=== PATIENT | male | born 1990 | race Two or more races ===

== ENCOUNTER 2024-04-04 04:01 | Inpatient (IN) | payer MEDICAID, SELFPAY ==
[2024-04-04] VITALS (10 sets, daily range): BP systolic 134–162; BP diastolic 75–88; PULSE 77–122; RESP 18–20; TEMP 36.6–39.3; O2SAT 94–100; BMI 50.1
--- NOTE | 2024-04-04 04:15 | XR_ITS ---
Examination: CT abdomen with intravenous contrast CT pelvis with intravenous contrast 2-D coronal reconstructions 2-D sagittal reconstructions Date and time of exam:April 04, 2024 0544 hours INDICATIONS: Redness swelling and pain in the buttock region this week, diagnosis abscess. Renal abscess. CTDI: vol (mGy) 21.21 DLP: (mGycm) 1747 Technique: Multiple axial sections of the abdomen and pelvis have been obtained. 64 slice high-resolution scanner used. 3 mm axial sections have been obtained, post intravenous injection 60 cc [id number] 2-D sagittal, coronal reconstructions obtained. Low dose protocols were performed. One or more of the following dose reduction techniques were used; automated exposure control, adjustment of the mA and/or KV according to patient size, use of iterative reconstruction technique. 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
--- NOTE | 2024-04-04 04:17 | EDRME_ITS ---
Rapid Medical Screening Exam [facility] Arrival date/time: 04/04/24 04:01 34-year-old male past medical history of hypertension presents emergency department complaining of abscess to right buttocks that is been ongoing for 1 week. Patient reports seeing primary care provider was discharged on Bactrim but reports symptoms have worsened. Patient reports has taken 3 days worth of Bactrim. Chief Complaint: Skin/Abscess/Foreign Body Vital signs: Vital Signs Temperature 99.6 F 04/04/24 04:11 Pulse Rate 122 H 04/04/24 04:11 Respiratory Rate 18 04/04/24 04:11 Blood Pressure 138/82 H 04/04/24 04:11 Pulse Oximetry (%) 98 04/04/24 04:11 Oxygen Delivery Method Room Air 04/04/24 04:11 Vital signs reviewed by provider: Yes
[2024-04-04 05:05] LABS: Lactate (Lactic Acid) 1.3 mMol/L (0.4-2.0)
[2024-04-04 05:07] LABS: Basophils # (Auto) 0.1 Thou/mm3 (0.0-0.2); Basophils % (Auto) 0 % (0-2.5); Eosinophils % (Auto) 0 % (0-10); Hematocrit 44.4 % (41.0-53.0); Hemoglobin 15.1 g/dL (13.5-16.0); Immature Granulocytes % (Auto) 2 % (0-0); Immature Granulocytes Auto 0.47 Thou/mm3 (0.00-0.00); Lymphocytes # (Auto) 2.4 Thou/mm3 (1.0-4.8); Lymphocytes % (Auto) 8 % (10-50); Mean Corpuscular Hemoglobin 30.3 pg (25.0-35.0); Mean Corpuscular Volume 89 fL (80-100); Monocytes # (Auto) 3.1 Thou/mm3 (0.0-0.8); Monocytes % (Auto) 10 % (0-12); Neutrophils % (Auto) 80 % (37-80); Nucleated Red Blood Cell % 0 /100 WBC (0); Platelet Count 318 Thou/mm3 (140-440); RDW Standard Deviation 42.2 fL (35.1-43.9); Red Blood Count 4.98 Miln/mm3 (4.50-5.90)
[2024-04-04 05:09] LABS: White Blood Count 30.1 Thou/mm3 (3.8-10.6)
--- NOTE | 2024-04-04 05:13 | PC.NURSE ---
Initial contact with pt.
[2024-04-04] MEDS: HYDROcodone/APAP 5/325 TABLET 1 TAB PO (05:22)
[2024-04-04 05:23] LABS: Glucose Estimated Average 111 mg/dL (80-131); Hemoglobin A1C 5.5 % Hgb (4.8-6.0)
[2024-04-04 05:33] LABS: Alanine Aminotransferase 21 U/L (10-49); Albumin, Serum 4.2 gm/dL (3.5-5.0); Albumin/Globulin Ratio 1.1 (1.2-2.2); Alkaline Phosphatase 60 U/L (46-116); Anion Gap 9 (7-16); Aspartate Amino Transferase 22 U/L (0-34); BUN/Creatinine Ratio 9 Ratio (12-20); Blood Urea Nitrogen 11 mg/dL (9-23); Calcium 9.1 mg/dL (8.3-10.6); Calcium (Corrected) 9.1 mg/dL (8.5-10.1); Carbon Dioxide 23.8 mMol/L (20.0-31.0); Chloride 104 mMol/L (98-107); Creatinine (Component) 1.2 mg/dL (0.6-1.3); Estimated Creatinine Clearance 140.7 mL/min (>60); Globulin 3.9 gm/dL (2.3-3.5); Glucose 116 mg/dL (74-106); Osmolality,Calculated 274 (275-295); Potassium 4.2 mMol/L (3.4-5.1); Procalcitonin 0.25 ng/ml (0.0-0.49); Sodium 137 mMol/L (136-145); Total Protein 8.1 gm/dL (5.7-8.2); eGFR > 60 See Note
--- NOTE | 2024-04-04 06:17 | PRELIM_ITS ---
CT scan of the abdomen and pelvis with intravenous contrast (axial sections with sagittal and coronal reformats) April 04, 2024 0544 hours Clinical History: Rule out ishiorectal or perianal abscess Findings: The lung bases are clear. Fatty infiltration of the liver is noted.The gallbladder, pancreas, spleen, kidneys and adrenals are unremarkable. No evidence of bowel obstruction. Fluid filled small bowel loops are seen. There are multiple colonic diverticula without evidence of diverticulitis.The appendix is within normal limits. There is no mesenteric or retroperitoneal adenopathy. The urinary bladder is unremarkable. There is no free fluid or free air. There is severe ischiorectal and perineal fat stranding with multiple gas loculi. The osseous structures are unremarkable. Impression: Findings suggestive of Serene gangrene involving perineum andischiorectal fossa on the left. Other findings as described above. Report Electronically Signed By: Kaleb Zuleta 04/04/2024 6:15:38 AM [EST]
--- NOTE | 2024-04-04 06:40 | PC.LAC ---
Pt transfered to #[id number], via w/c. Pt carried by mom on w/c without incident.
--- NOTE | 2024-04-04 06:57 | PC.NURSE ---
Dr. Mcgregor in room seeing pt.
--- NOTE | 2024-04-04 06:57 | PD.EDSKIN ---
ED Skin Abcess FB-RME/HPI General Chief complaint: Skin/Abscess/Foreign Body Stated complaint: ABSCESS ON BUTTOCK Time Seen by Provider: 04/04/24 06:15 Arrival date/time: 04/04/24 04:01 RME / HPI RME / HPI narrative: 04/04/24 04:01 34-year-old male past medical history of hypertension presents emergency department complaining of abscess to right buttocks that is been ongoing for 1 week. Patient reports seeing primary care provider was discharged on Bactrim but reports symptoms have worsened. Patient reports has taken 3 days worth of Bactrim. DR. LYNCH MAIN ED EVALUATION 34 year old male with history of hypertension who presents to the emergency department with complaints of perineal pain, redness, and swelling. He was diagnosed with a perineal abscess by his PCP two days ago and was started on a course of Bactrim. However, he reports no improvement in symptoms since starting the antibiotic and progressively worsening. The pain has been persistent and is localized to the perineal region. He denies any pain or discomfort involving the scrotum or penis. Denies any drainage from the area. Denies fever, chills, trauma or recent surgical procedures in the perineal area. Denies any difficulty urinating. No history of similar abscesses or infections in the past. Related Data Previous Rx's ?Medication ?Instructions ?Recorded ibuprofen 800 mg tablet 800 mg PO TID PRN pain #20 tabs 08/18/18 Allergies Allergy/AdvReac Type Severity Reaction Status Date / Time No Known Allergies Allergy Verified 04/04/24 04:04 Review of Systems Review of Systems Narrative Review of Systems: Gen: No fever, no chills, no weight loss EYES: No discharge, no visual changes, no pain HEENT: No ear pain, no congestion, no sore throat PULM: no shortness of breath, no cough, no congestion CV: No chest pain, no dyspnea on exertion, no palpitations, no chest tightness GI: No nausea, no vomiting, no diarrhea, no pain, no constipation : No frequency, no urgency,? no dysuria Musc/skel: No joint pain, no back pain Skin: +redness/swelling/pain to base of left buttock/perianal area. No rash, no lesions Psyc: No hallucinations, no depression Heme/Lymph: No easy bleeding or bruising tendencies Neuro: No weakness, no headache Past Medical History Past Medical History NEUROLOGIC: Negative Neurological Disorders CARDIAC: Positive Myocardial Infarction and Coronary Artery Disease GASTROINTESTINAL: Negative Gastrointestinal Disorders GENITOURINARY: Negative Genitourinary Disorders or Renal Disease MUSCULOSKELETAL: Negative Musculoskeletal Disorders ENDOCRINE: Negative Endocrine Disorders Family History FAMILY HISTORY: Positive Family Cardiac Disorders Social History SMOKING STATUS: Current some day smoker SUBSTANCE USE: does not use ED Exam Narrative Physical exam: GENERAL APPEARANCE: AxOx4, no obvious distress, nontoxic appearing HEENT: NC, AT. MMM. EOMI, clear conjunctiva, oropharynx clear. NECK: Supple without lymphadenopathy. No stiffness or restricted ROM. HEART: Normal rate and regular rhythm, normal S1/S1, no m/r/g LUNGS: CTAB, moving air well. No crackles or wheezes are heard. ABDOMEN: Soft, nontender, nondistended with good bowel sounds heard. : Redness that tracks up the perineum, to the left glutteus at the base there is an area measuring 10cm x 10cm of fluctuance with induration that extends up to perineum, does not reach the anterior perineum. No scrotal involvement, no penile involvement, no necrosis, blistering, or hemorrhagic bulla BACK: No midline C/T/L spine pain or deformity, No CVAT, no obvious deformity. EXTREMITIES: Without cyanosis, clubbing or edema. MUSCULOSKELETAL: FROM of all major joints, no chest tenderness NEUROLOGICAL: Grossly nonfocal. Alert and oriented, moving all 4 extremities. CN not formally tested but appear grossly intact. Skin: Warm and dry without any rash. Course Quality Measures none Orders Category Date Time Status Admit to Inpatient Status Routine Admission 04/04/24 12:02 Active Admit to Inpatient Status Routine Admission 04/04/24 12:03 Active Patient Condition Routine Admission 04/04/24 12:03 Ordered Activity as Tolerated Routine Care 04/04/24 12:[address] Screening NOW Care 04/04/24 04:15 Active NPO NOW Care 04/04/24 06:59 Active Notify provider NEEDED Care 04/04/24 12:03 Active Vital Signs, Non-Routine Q4H Care 04/04/24 12:15 Ordered Vital Signs, Non-Routine Q4H Care 04/04/24 16:15 Ordered Vital Signs, Non-Routine Q4H Care 04/04/24 20:15 Ordered Consult to General Surgery Stat Cons 04/04/24 07:32 Ordered Diet NPO (NOW) Diet 04/04/24 06:[address] abdomen pelvis w con Stat Exams 04/04/24 04:15 Completed US testicular Stat Exams 04/04/24 12:07 Ordered A1C [Glycohemoglobin w (eAG)] Stat Lab 04/04/24 04:55 Completed Blood Culture (Lab) Stat Lab 04/04/24 04:55 Received CBC AM DRAW Lab 04/05/24 05:00 Ordered CBC AM DRAW Lab 04/06/24 05:00 Ordered CBC AM DRAW Lab 04/07/24 05:00 Ordered CBC Stat Lab 04/04/24 04:55 Completed CMP [Comprehensive Metabolic Panel] Stat Lab 04/04/24 04:55 Completed Comprehensive Metabolic Panel AM DRAW Lab 04/05/24 05:00 Ordered Comprehensive Metabolic Panel AM DRAW Lab 04/06/24 05:00 Ordered Comprehensive Metabolic Panel AM DRAW Lab 04/07/24 05:00 Ordered Lactic Acid [Lactate (Lactic Acid)] Stat Lab 04/04/24 04:55 Completed Procalcitonin Stat Lab 04/04/24 04:55 Completed Urinalysis, C/S if Indicated Stat Lab 04/04/24 04:17 Ordered Acetaminophen Tab [Tylenol Tab] Med 04/04/24 12:03 Active 650 mg PO Q6H PRN Enoxaparin [Lovenox] Med 04/05/24 09:00 Discontinued 40 mg SC QDAY Enoxaparin [Lovenox] Med 04/04/24 21:00 Active 60 mg SC BID HYDROcodone*/APAP 5/325 [[place] 5/325] Med 04/04/24 04:15 Discontinued 1 tab PO X1 ONE Heparin Inj Med 04/04/24 21:00 Discontinued 5,000 unit SC BID Ibuprofen Tab [Motrin Tab] Med 04/04/24 12:03 Active 600 mg PO Q6H PRN Morphine Inj Med 04/04/24 12:03 Active 2 mg IVP Q2H PRN Ondansetron Inj [Zofran Inj] Med 04/04/24 12:03 Active 4 mg IV Q6H PRN Piper/Tazo 3.375 gm [Zosyn] Med 04/04/24 13:00 Active 3.375 gm in 50 ml IV Q8H Piper/Tazo 3.375 gm [Zosyn] 50 ml Med 04/04/24 06:59 Discontinued IV X1 Senna [Senokot] Med 04/04/24 12:03 Active 2 tab PO BID PRN Sodium Chloride 0.9% 1000 ml [Ns] 1,000 ml Med 04/04/24 06:58 Discontinued IV 999 mls/hr Vancomycin Inj 1,000 mg Med 04/04/24 06:59 Discontinued Sodium Chloride 0.9% 250 ml [Ns] 250 ml IV X1 Vancomycin Inj 1,500 mg Med 04/05/24 00:00 Active Sodium Chloride 0.9% 500 ml [Ns] 500 ml IV Q12H Vancomycin Pharmacy to Dose Med 04/05/24 09:00 Active 1 each IV QDAY Vancomycin/Ns 500 mg Ivpb 100 ml Med 04/04/24 11:00 Discontinued IV NOW oxyCODONE/APAP 5/325 [Percocet 5/325] Med 04/04/24 12:03 Active 1 tab PO Q6H PRN Code Status Routine Oth 04/04/24 12:03 Ordered Vital Signs Vital signs: Vital Signs Temperature 99.6 F 04/04/24 04:11 Pulse Rate 122 H 04/04/24 04:11 Respiratory Rate 18 04/04/24 04:11 Blood Pressure 138/82 H 04/04/24 04:11 Pulse Oximetry (%) 98 04/04/24 04:11 Oxygen Delivery Method Room Air 04/04/24 04:11 Pulse ox is 98% on room air which is adequate. Skin / Abscess / Foreign Body MDM Narrative MDM Narrative:: Mr. Robson Gregg presents to the emergency department with gluteal cellulitis with some extension into the perineum. There is potentially fluctuance at the gluteal and of the infection. There is no signs of necrosing skin findings or hemorrhagic bulla on exam. He has been ambulatory here in the emergency department without issue or antalgic gait. Patient is an on Bactrim for 2 days via his outpatient provider. Patient had laboratory testing sent via the E process which significant for a white blood cell count of 30,000, normal lactic acid, normal blood sugar, normal hemoglobin A1c. CT scan of the abdomen pelvis were done which shows gas-forming infection of the gluteus including the perineum that could be suggestive of Serene's gangrene. This is quite contrary to the exam, therefore surgery was consulted where we did access the patient together at bedside. He agrees does not appear to be an overt Serene's or a necrotizing infection, recommends IV antibiotics with the hospitalist service, and he will take to the operating room for debridement. Jamee Carty, am scribing for and in the presence of Dr. Lynch. Patient data External records reviewed:: [facility] previous records (I reviewed ED visit on 08/18/2018) Clinical information provided by:: patient Social determinants that could affect healthcare access:: none Patient has the following chronic illnesses:: HTN How is presenting disease/condition affected by chronic disease/condition?: uneffected by Evaluation data The following diagnostics were reviewed and interpreted by me:: lab results and radiology exam(s) Lab and/or radiology exams considered but not ordered:: None Interpretation Summary: Ordering Physician: Abigail Rey (SLEEPING CAR SERVICE ATTENDANT),Hernandez AVALOS Date of Service: 04/04/24 Procedure(s): CT abdomen pelvis w con Accession Number(s): [id number] cc: Brannon Gregg MD; Rowdy Zepeda MD; Abigail Rey (SLEEPING CAR SERVICE ATTENDANT),Hernandez AVALOS~ Examination: CT abdomen with intravenous contrast CT pelvis with intravenous contrast 2-D coronal reconstructions 2-D sagittal reconstructions Date and time of exam:April 04, 2024 0544 hours INDICATIONS: Redness swelling and pain in the buttock region this week, diagnosis abscess. Renal abscess. CTDI: vol (mGy) 21.21 DLP: (mGycm) 1747 Technique: Multiple axial sections of the abdomen and pelvis have been obtained. 64 slice high-resolution scanner used. 3 mm axial sections have been obtained, post intravenous injection 60 cc [id number] 2-D sagittal, coronal reconstructions obtained. Low dose protocols were performed. One or more of the following dose reduction techniques were used; automated exposure control, adjustment of the mA and/or KV according to patient size, use of iterative reconstruction technique. 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 Dictated By: Rowdy Zepeda MD Signed By: <Electronically signed by Rowdy Zepeda MD in OV> 04/04/24 0704 Medications / Prescriptions Medications or Prescriptions considered but not ordered:: None Medication administrations:: Medication Administration History Acetaminophen (Acetaminophen 325 Mg Tablet) 650 mg PO Q6H PRN PRN Reason: Fever >101.5 Stop: 05/04/24 12:02 Enoxaparin Sodium (Enoxaparin Sod Inj 60 Mg/0.6 Ml Syringe) 60 mg SC BID [facility]; Protocol Stop: 04/18/24 20:59 Piperacillin/Tazobactam/Dextrose (Zosyn) 3.375 gm in 50 mls @ 12.5 mls/hr IV Q8H [facility] Stop: 04/11/24 12:59 Vancomycin HCl 1,500 mg/ (Sodium Chloride) 500 mls @ 333.333 mls/hr IV Q12H [facility] Stop: 04/12/24 00:00 Ibuprofen (Ibuprofen Tab 600 Mg Tablet) 600 mg PO Q6H PRN PRN Reason: PAIN SCALE 1-3 (mild Stop: 05/04/24 12:02 Morphine Sulfate (Morphine Sulf Inj 10 Mg/Ml Vial) 2 mg IVP Q2H PRN PRN Reason: PAIN SCALE 7-10 (Severe Stop: 04/09/24 12:02 Ondansetron HCl (Ondansetron Inj 2 Mg/Ml Inj 2 Ml) 4 mg IV Q6H PRN; Protocol PRN Reason: NAUSEA OR VOMITING Stop: 05/04/24 12:02 Oxycodone/Acetaminophen (Oxycodone/Apap 5/325 Tablet) 1 tab PO Q6H PRN PRN Reason: PAIN SCALE 4-6 (Moderate Stop: 04/09/24 12:02 Pharmacy Consult (Vancomycin Pharmacy To Dose 1 Each Each) 1 each IV QDAY [facility] Stop: 05/05/24 08:59 Sennosides (Senna Tablet) 2 tab PO BID PRN; Protocol PRN Reason: CONSTIPATION Stop: 05/04/24 12:02 Discontinued Medications Hydrocodone Bitart/Acetaminophen (Hydrocodone/Apap 5/325 Tablet) 1 tab PO X1 ONE Stop: 04/04/24 04:16 Last Admin: 04/04/24 05:22 Dose: 1 tab Documented By: RAHUL Enoxaparin Sodium (Enoxaparin Sod Inj 40 Mg/0.4 Ml Syringe) 40 mg SC QDAY [facility] Stop: 04/19/24 08:59 Heparin Sodium (Porcine) (Heparin Sod Inj 5000 Unit/Ml Vial) 5,000 unit SC BID [facility] Stop: 04/18/24 20:59 Sodium Chloride (Ns) 1,000 mls @ 999 mls/hr IV .Q1H1M ONE Stop: 04/04/24 07:58 Last Infusion: 04/04/24 08:45 Dose: Infused Documented By: Admin: 04/04/24 07:13 Dose: 999 mls/hr Documented By: RAHUL Vancomycin HCl 1,000 mg/ (Sodium Chloride) 250 mls @ 150 mls/hr IV X1 ONE Stop: 04/04/24 08:38 Last Infusion: 04/04/24 12:11 Dose: Infused Documented By: Admin: 04/04/24 09:17 Dose: 150 mls/hr Documented By: JEIMY Piperacillin/Tazobactam/Dextrose (Zosyn) 50 mls @ 100 mls/hr IV X1 ONE Stop: 04/04/24 07:28 Last Infusion: 04/04/24 10:14 Dose: Infused Documented By: Admin: 04/04/24 09:00 Dose: 100 mls/hr Documented By: JEIMY Vancomycin/Sodium Chloride (Vancomycin/Ns 500 Mg Ivpb) 100 mls @ 100 mls/hr IV NOW ONE Stop: 04/04/24 11:59 See above Consultations Consultation(s) initiated? (list below): Yes Consultation #1 (Physician, Specialty, Details): I spoke with surgeon Dr. Miranda. Discussed patients PMHx, HPI, ED course, exam findings, labs, and radiology results. Will come evaluate the patient in the ED. Time: 07:10 Consultation #2 (Physician, Specialty, Details): I spoke with resident Dr. Peña working with Dr. Baumann. Discussed patients PMHx, HPI, ED course, exam findings, labs, and radiology results. The hospitalist agree to accept the patient for admission. Diagnosis Skin/Abscess Differential Diagnosis: abscess of skin or subcutaneous tissue, cellulitis, contact dermatitis and other (abscess ) Most likely diagnosis given after review of the tests above:: Cellulitis Admission Indicated Admission indicated?: indicated Admission Request Was there a request for admission?: Yes Admission Attestation Admission request attestation: Discussed case with [] from Hospitalist service regarding admission. Discussed patients ED course, exam findings, labs, and radiology results. The Hospitalist [agrees,declines] to accept the patient for admission. Disposition Plan Disposition Plan: Admit Discharge Plan Plan Patient Disposition: Admit Acute Care w/in Hospital Prescriptions/Referrals Prescriptions/Med Rec: No Action ibuprofen 800 mg tablet 800 mg PO TID PRN (Reason: pain) Qty: 20 0RF Referrals: Brannon Gregg MD [Primary Care Provider] - In 1 week Problem List Clinical Impression: Cellulitis Patient/Caregiver Discharge Instructions Print Language: Yoruba Stand Alone Forms: [facility] Award Info., Patient Portal Info Letter
[2024-04-04] MEDS: SODIUM CHLORIDE 0.9% 1000 ML 1,000 ML 999 ML IV (07:13)
[2024-04-04] MEDS: PIPER/TAZO 3.375 GM 50 ML IV (09:00)
[2024-04-04] MEDS: Vancomycin Inj 1,000 MG in SODIUM CHLORIDE 0.9% 250 ML 250 ML 150 MG IV (09:17)
--- NOTE | 2024-04-04 10:17 | ESHP_ITS ---
<Statement entered by Jaleesa Peña MD - 04/04/24 16:43> Patient is a 34 year old male with no PMH who presents to the ER for worsening left buttock pain. Pain started 5 days ago. He followed up with outpatient clinic and tried 3 days of bactrim without significant improvement, so came to the ER. Denies history of diabetes, or buttock wounds in the past. On exam, noted firm induration along right buttock extending to mid-perineum, pain to palpation, non-malodorous. CT imaging showed extensive cellulitis possible guy, however patient was assessed by the ER physician and general surgeon with low suspicion for Guy gangrene at this time. Labs significant for leukocytosis, otherwise patient does not appear septic. Will give broad spectrum IV antibiotics with possible plans for general surgery to take patient to ER in 1-2 days for possible I&D. Will follow up cultures and get ultrasound of the scrotum in the meantime. Jaleesa Peña MD PGY-3 Documentation for date of: 04/04/24 HPI History of Present Illness Chief complaint: Cellulitis of the buttock History of present illness: Patient is a 34-year-old male with history of hypertension and morbid obesity, presenting with a complaint of left buttock swelling, erythema and tenderness for the last 5 days. Was diagnosed with cellulitis 3 days ago at outpatient clinic and was given a course of Bactrim. Patient took 3 days of the medication and did not note improvement so he presented to the ED today. Swelling started at the left butt cheek and worked its way towards his anus and anterior around the perineum. Denies any drainage. No fevers, chills. He did have an episode of diarrhea and vomiting which is now resolved. In the ED vitals within normal limits. Labs with a leukocytosis of 30. Negative lactic acid 1.3. Blood cultures x 2 drawn. Negative Pro-Celestine 0.25. CT of the abdomen and pelvis shows cellulitis involving the left buttock and perineum. Patient was started on Vanco and Zosyn, received 1 L bolus and was given hydrocodone for pain. Medical history: Obesity, hypertension Allergies: None Medications: Unknown blood pressure medication Surgeries: None Social: Denies alcohol use, former smoker 5-pack-year history Patient was evaluated and managed by my attending Dr. Baumann, Luan Adame DO, PGY1 Review of Systems Constitutional Constitutional: Reports as per HPI Exam Vital Signs Temp Pulse Resp BP Pulse Ox O2 Del Method 98.4 F 80 18 134/75 H 95 Room Air 04/04/24 09:00 04/04/24 09:00 04/04/24 09:00 04/04/24 09:00 04/04/24 09:00 04/04/24 09:00 Narrative Exam Constitutional: Obese, no acute distress Head: Normocephalic/Atraumatic Eyes:no conjunctival injection , symmetrical lids. ENMT: Moist Mucous Membranes CVS: Regular rate and rhythm RESP: no increased work of breathing, on room air : Left buttock is indurated, erythematous, warm and tender to palpation. There is a 2 x 2 cm area of focal induration on the posterior aspect of the left buttock. Erythema and induration spreads anteriorly to the perineum at the base of the scrotum. Patient is able to move around in bed comfortably, and move his scrotum without difficulty or pain. MSK: Full range of motion Skin: As per above Neuro: Alert and oriented Psych: Appropriate mood and affect. Results: Labs 04/04/24 04:55 04/04/24 04:55 Labs: Short CBC 04/04/24 Range/Units 04:55 WBC 30.1 H (3.8-10.6) Thou/mm3 Hgb 15.1 (13.5-16.0) g/dL Hct 44.4 (41.0-53.0) % Plt Count 318 (140-440) Thou/mm3 BMP 04/04/24 04:55 Sodium 137 Potassium 4.2 Chloride 104 Carbon Dioxide 23.8 BUN 11 Creatinine 1.2 Glucose 116 H Calcium 9.1 Liver Function 04/04/24 Range/Units 04:55 Total Bilirubin 1.0 (0.3-1.2) mg/dL AST 22 (0-34) U/L ALT 21 (10-49) U/L Alkaline Phosphatase 60 (46-116) U/L Albumin 4.2 (3.5-5.0) gm/dL Quality Measures Quality Measures none Medications Home Medications and Allergies Allergies Allergy/AdvReac Type Severity Reaction Status Date / Time No Known Allergies Allergy Verified 04/04/24 04:04 Visit Medications Piperacillin/Tazobactam/Dextrose (Zosyn) 3.375 gm in 50 mls @ 100 mls/hr IV Q6HR [facility] Stop: 04/11/24 14:59 Pharmacy Consult (Vancomycin Pharmacy To Dose 1 Each Each) 1 each IV QDAY [facility] Stop: 05/05/24 08:59 Discontinued Medications Hydrocodone Bitart/Acetaminophen (Hydrocodone/Apap 5/325 Tablet) 1 tab PO X1 ONE Stop: 04/04/24 04:16 Last Admin: 04/04/24 05:22 Dose: 1 tab Sodium Chloride (Ns) 1,000 mls @ 999 mls/hr IV .Q1H1M ONE Stop: 04/04/24 07:58 Last Infusion: 04/04/24 08:45 Dose: Infused Vancomycin HCl 1,000 mg/ (Sodium Chloride) 250 mls @ 150 mls/hr IV X1 ONE Stop: 04/04/24 08:38 Last Admin: 04/04/24 09:17 Dose: 150 mls/hr Piperacillin/Tazobactam/Dextrose (Zosyn) 50 mls @ 100 mls/hr IV X1 ONE Stop: 04/04/24 07:28 Last Infusion: 04/04/24 10:14 Dose: Infused Assessment & Plan Plan Patient is a 34-year-old male with history of hypertension and morbid obesity, presenting with a complaint of left buttock swelling, erythema and tenderness for the last 5 days. Admitted for further treatment of cellulitis. Sepsis Cellulitis Leukocytosis In the ED vitals within normal limits. Labs with a leukocytosis of 30. Negative lactic acid 1.3. Blood cultures x 2 drawn. Negative Pro-Celestine 0.25. CT of the abdomen and pelvis shows Guy's involving the left buttock and perineum. Testicular ultrasound unremarkable. On exam: Left buttock is indurated, erythematous, warm and tender to palpation. There is a 2 x 2 cm area of focal induration on the posterior aspect of the left buttock. Erythema and induration spreads anteriorly to the perineum at the base of the scrotum. Patient is able to move around in bed comfortably, and move his scrotum without difficulty or pain. Dr. Miranda, general surgery consulted and he does not think that this is Guy's gangrene. There is no obvious signs of ischemia, no crepitus on exam, appears erythematous and indurated which is more consistent with cellulitis. Reevaluated patient at [address] Baumann and wound care nurse Melissa. Patient spiking fever of 101.5. He feels as though these swelling is extending forward from his perineum into his base of scrotum. Images were taken by Melissa and we marked the sites of erythema. Called Dr. Miranda, surgical attending who has been consulted. He noted that surgery is not needed at this time, that fevers are expected with cellulitis, needs time (1 to 2 days) with IV antibiotics before he can take patient to the OR. Plan: ?Surgery consulted, OR tomorrow or the next day ?Patient on vancomycin, Zosyn and clindamycin (/?present) ?Blood cultures pending ?Pain meds as needed ?Will continue monitor vitals ?Consulted wound care Hypertension Patient does not know what his home medication is. ?Initiated losartan 25 mg daily Prediabetes A1c 5.5 ?Diabetic diet Obesity Patient was evaluated and managed by my attending Dr. Baumann, Luan Adame DO, PGY1 Attending Provider Attestation/Addendum I, Janie Baumann DO, attest that I was physically present for the munoz portions of the service and evaluated the patient with the resident and I reviewed and discussed the case with the resident and agree with the resident's findings and plans of care as documented above Patient is a 34 year old male with no significant past medical history who presented to the ED due to worsening pain in his left buttock that began 5 days ago. Patient has been taking bactrim for the past 3 days without any resolution of his pain or infection. Patient denied any prior history of abscesses. He denies taking any other medications otherwise. A1c is noted to be 5.5. Patient reports pain, but denies any fevers or chills. On exam, patient is noted to have induration and pain to palpation of his buttock. CT abdomen and pelvis was done in ED showing extensive soft tissue infection, concerning for guy. However, on exam, there is no edema, tenderness or erythema involving the scrotum. Induration is noted around the perineum. Case was discussed with surgeon who plans for debridement in 1-2 days and has low suspicion for guy. Will admit to med/tele and cover with broad spectrum antibiotics. Will cover for vancomycin, zosyn and clindamycin. Continue with IV fluid hydration and f/u with cultures
--- NOTE | 2024-04-04 12:07 | XR_ITS ---
Examination: Testicular sonography complete TECHNIQUE: Grayscale sonographic images testes, assessment arterial inflow venous outflow Doppler spectral analysis carful analysis Exam date and time: April 04, 2024 1236 hours INDICATIONS: Soft tissue infection perineum extending to the scrotum beginning 10 days ago FINDINGS: Right testis 4.7 x 2.2 x 3.3 cm Epididymis 2.7 cm Arterial flow testicle. No testicular mass Left testis 4.0 x 2.7 x 3.6 cm Epididymis 13 mm Arterial flow testicle. No testicular mass Moderate varicocele Mild hydrocele IMPRESSION: No testicular torsion or testicular mass No scrotal abscess
--- NOTE | 2024-04-04 14:18 | PC.CC ---
Patient is a 34 year old male who presents to the hospital for cellulitis. Arelis OGLESBY made [id number] contact with patient. ASW introduced self, role, and reason for visit. Patient appeared alert and oriented to self, location, and situation. Patient was pleasant and engaged in initial assessment. Patient confirmed information on demographics and reports to living at home with his , Arianna Chance . Patient stated that should he be unable to make his own medical decisions his medical decision maker would be his , Arianna. At home patient is able to complete his own ADLs and is independent when ambulating. Patient does not use any DME or oxygen at home. He receives primary care with provider Brannon Gregg and uses [facility] for prescription medication. Upon discharge patient plans to return home. community services manager to follow up with any discharge needs.
[2024-04-04] MEDS: SODIUM CHLORIDE 0.9% 1000 ML 1,000 ML 75 ML IV (15:49)
[2024-04-04] MEDS: CLINDAMYCIN 900MG IVPB 900 MG in PRE-MIXED 1 BAG 50 MG IV ×2 (15:57→21:08)
--- NOTE | 2024-04-04 19:08 | PD.SURCONS ---
HPI Consult details Consult date: 04/04/24 Reason for consultation narrative: Patient was seen on consultation in the emergency room for a possible abscess over the left buttock and to rule out FORNEARS gangrene History of present illness: History of present illness revealed that the patient has been in his usual health until 5 days ago when he started having pain over the left buttock. He waited couple of days and it was not getting better. Then he went to see his primary care physician who gave him an antibiotics consisting of Bactrim. But after taking those antibiotics for 2 days patient still experienced pain and therefore came to the emergency room. Patient's other medical problem consisted of morbid obesity weighing 380 pounds and hypertension. Patient denies any major medical illness in the past. No history of diabetes Past Medical History Past Medical History NEUROLOGIC: Negative Neurological Disorders CARDIAC: Positive Myocardial Infarction and Coronary Artery Disease; Negative Cardiac Disorders or Congestive Heart Failure RESPIRATORY: Negative Chronic Obstructive Pulmonary Disease (COPD) or Asthma GASTROINTESTINAL: Negative Gastrointestinal Disorders GENITOURINARY: Negative Genitourinary Disorders or Renal Disease MUSCULOSKELETAL: Negative Musculoskeletal Disorders ENDOCRINE: Negative Endocrine Disorders, Diabetes Mellitus Type 1 or Diabetes Mellitus Type 2 HEMATOLOGIC: Negative Blood Disorders or Sickle Cell Disease Family History FAMILY HISTORY: Positive Family Cardiac Disorders; Negative Family Psychiatric Problems, Family Respiratory Disorders or Family Gastrointestinal Problems Social History SMOKING STATUS: Current some day smoker SUBSTANCE USE: does not use Meds Home Medications and Allergies Allergies Allergy/AdvReac Type Severity Reaction Status Date / Time No Known Allergies Allergy Verified 04/04/24 04:04 Exam Vital Signs Temp Pulse Resp BP Pulse Ox O2 Del Method 101.1 F H 103 H 19 148/85 H 97 Room Air 04/04/24 16:00 04/04/24 16:00 04/04/24 16:00 04/04/24 16:00 04/04/24 16:00 04/04/24 16:00 Narrative Exam Physical examination revealed morbidly obese male who is 6 feet 1 inch tall weighing 380 pounds. Constitutional Constitutional: severe distress Routine Cardiovascular Exam Comments: Sinus tachycardia Routine Abdominal Exam Comments: Within normal limits Routine Rectal Exam Comments: Examination of the perianal region showed considerable induration over the left buttock. There is redness as well as significant hardness over the left buttock. There is no evidence of any fluctuation. Routine Exam Comments: Patient is showing some pain over the left groin and swelling Results Results: Laboratory Laboratory Narrative: Patient's WBC today is a 30,000 with a shift to the left. 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 I will arrange for incision and drainage of this perianal region if there is some fluctuation or if there is any purulent material seen on the CT scan. There is gas in the perineal region and it may still show purulent material upon drainage. We will reevaluate him tomorrow and decide whether he will require surgery now immediately. Thank you very much
[2024-04-04 19:24] LABS: Anion Gap 8 (7-16); BUN/Creatinine Ratio 11 Ratio (12-20); Blood Urea Nitrogen 12 mg/dL (9-23); Calcium 8.5 mg/dL (8.3-10.6); Chloride 102 mMol/L (98-107); Creatinine (Component) 1.1 mg/dL (0.6-1.3); Estimated Creatinine Clearance 153.5 mL/min (>60); Glucose 117 mg/dL (74-106); Osmolality,Calculated 270 (275-295); Potassium 3.8 mMol/L (3.4-5.1); Sodium 135 mMol/L (136-145); eGFR > 60 See Note
[2024-04-04] MEDS: MORPHINE SULF INJ 10 MG/ML VIAL 2 MG IVP (19:34)
[2024-04-04] MEDS: ENOXAPARIN SOD INJ 60 MG/0.6 ML SYRINGE SC (21:07)
[2024-04-04] MEDS: PIPER/TAZO 3.375 GM 3.375 GM/50 ML BAG IV (21:08)
[2024-04-04] MEDS: SODIUM CHLORIDE 0.9% 1000 ML 1,000 ML 125 ML IV (21:08)
[2024-04-04 23:29] LABS: Collection Type, Urine Clean Catch; Squamous Epithelial Cell,Urine 0 /hpf (0-5)
[2024-04-04 23:40] LABS: Bilirubin,Urine Negative (Negative); Blood,Urine 3+ (Negative); Clarity,Urine Clear (Clear/Hazy); Color,Urine Lt-Yellow (Lt Yel-Yel); Culture Indicated,Urine Not Indicated; Glucose, Urine Negative (Negative); Ketones,Urine Negative (Negative); Leukocyte Esterase,Urine Negative (Negative); Nitrite,Urine Negative (Negative); Protein,Urine Negative (Neg - Trace); RBC,Urine 3 /hpf (0-3); Specific Gravity,Urine 1.009 (1.001-1.035); Urobilinogen,Urine Negative mg/dL (0.0-1.0); WBC,Urine 1 /hpf (0-5)
--- NOTE | 2024-04-04 23:50 | PC.NURSE ---
called Dr. Noe regarding patient having a fever of 102.7, patient denies chills and pain. Will administer PRN tylenol for fever. No new orders received.
[2024-04-04] MEDS: ACETAMINOPHEN 325 MG TABLET 650 MG PO (23:52)
[2024-04-05] VITALS (14 sets, daily range): BP systolic 91–142; BP diastolic 59–92; PULSE 78–108; RESP 17–97; TEMP 36.7–39.3; O2SAT 91–97
[2024-04-05] MEDS: VANCOMYCIN 500 MG (00:34)
[2024-04-05] MEDS: VANCOMYCIN 1000 MG (00:34)
--- NOTE | 2024-04-05 02:01 | PC.NURSE ---
called Dr. Castano regarding patient's temp at 101.3, patient was given tylenol for fever of 102.7 about 2 hours ago but temp still elevated. Patient not c/o any pain, chills. Cooling measures in place. Per MD continue to monitor patient and temp and if other symptoms develop, to recheck temp at 0400 and see how patient is doing.
--- NOTE | 2024-04-05 03:20 | PC.NURSE ---
called MD Castano regarding new order of x1 PO acetaminophen for fever, patient is currently NPO for surgery possible today, per MD do not give oral meds, new order of suppository tylenol 325 to be given if temperature is >100.4.
[2024-04-05 03:52] LABS: Basophils # (Auto) 0.1 Thou/mm3 (0.0-0.2); Basophils % (Auto) 0 % (0-2.5); Eosinophils % (Auto) 0 % (0-10); Hematocrit 42.1 % (41.0-53.0); Hemoglobin 14.2 g/dL (13.5-16.0); Immature Granulocytes % (Auto) 2 % (0-0); Immature Granulocytes Auto 0.54 Thou/mm3 (0.00-0.00); Lymphocytes # (Auto) 2.3 Thou/mm3 (1.0-4.8); Lymphocytes % (Auto) 8 % (10-50); Mean Corpuscular HGB Conc 33.7 g/dl (31.0-37.0); Mean Corpuscular Hemoglobin 30.7 pg (25.0-35.0); Mean Corpuscular Volume 91 fL (80-100); Monocytes # (Auto) 2.5 Thou/mm3 (0.0-0.8); Monocytes % (Auto) 9 % (0-12); Neutrophils # (Auto) 23.3 Thou/mm3 (1.8-7.7); Neutrophils % (Auto) 81 % (37-80); Nucleated Red Blood Cell % 0 /100 WBC (0); Platelet Count 294 Thou/mm3 (140-440); RDW Standard Deviation 43.2 fL (35.1-43.9); Red Blood Count 4.63 Miln/mm3 (4.50-5.90); White Blood Count 28.7 Thou/mm3 (3.8-10.6)
[2024-04-05 03:59] LABS: Alanine Aminotransferase 22 U/L (10-49); Albumin, Serum 3.7 gm/dL (3.5-5.0); Albumin/Globulin Ratio 1.1 (1.2-2.2); Alkaline Phosphatase 62 U/L (46-116); Anion Gap 8 (7-16); Aspartate Amino Transferase 14 U/L (0-34); BUN/Creatinine Ratio 11 Ratio (12-20); Bilirubin,Total 0.6 mg/dL (0.3-1.2); Blood Urea Nitrogen 11 mg/dL (9-23); Calcium 8.4 mg/dL (8.3-10.6); Calcium (Corrected) 8.6 mg/dL (8.5-10.1); Carbon Dioxide 26.3 mMol/L (20.0-31.0); Chloride 103 mMol/L (98-107); Estimated Creatinine Clearance 168.8 mL/min (>60); Globulin 3.4 gm/dL (2.3-3.5); Glucose 114 mg/dL (74-106); Osmolality,Calculated 274 (275-295); Potassium 3.5 mMol/L (3.4-5.1); Sodium 137 mMol/L (136-145); Total Protein 7.1 gm/dL (5.7-8.2); eGFR > 60 See Note
[2024-04-05] MEDS: PIPER/TAZO 3.375 GM 3.375 GM/50 ML BAG IV ×3 (05:07→20:14)
[2024-04-05] MEDS: CLINDAMYCIN 900MG IVPB 900 MG in PRE-MIXED 1 BAG 50 MG IV (05:07)
[2024-04-05] MEDS: SODIUM CHLORIDE 0.9% 1000 ML 1,000 ML 125 ML IV ×2 (05:23→17:07)
--- NOTE | 2024-04-05 08:47 | PD.SUROPNT ---
Date of Procedure 04/05/24 Pre Op Diagnosis Ischiorectal abscess left side Post Op Diagnosis Ischiorectal abscess Procedure Incision and drainage of the ischiorectal abscess left buttock Findings Patient is found to have extensive cellulitis over the left buttock with an abscess few centimeters away from the anus. Patient also was having extension of this infection over the left groin Procedure Description After the patient was brought to the operating room endotracheal anesthesia given. Patient was kept in lithotomy position. His perianal area was washed with Betadine solution and draped in a sterile manner. Timeout is performed. Then I used 11 blade knife to make an incision over the left buttock and drained some purulent material. This was cultured. Then I inserted my finger and broke out any septations or any collections to drain. There was not many loculated collection. The dissection extended into the left groin to drain any fluid. 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 Wound was then irrigated extensively and bleeding points were controlled with cautery and 2-0 suture ligature. Then the entire wound was packed with 1 inch iodoform gauze and dressing was applied with fluff and ABD. Patient tolerated the procedure well Anesthesia GETA Pathology / specimen None Estimated Blood Loss 200 Condition Stable Disposition PACU Surgeon Luis Enrique Bautista MD Surgical Staff Operation Date: 04/05/24 07:30 <No data on this case meets the specified criteria>
--- NOTE | 2024-04-05 08:50 | SUR.PHASEI ---
0850: Pt. AAOx4,vitals stable, breathing unlabored, no complaint of pain or nausea, dressing to buttocks CDI, no active bleed noted, report received from Johnny AMANDA and MD Ortiz.
--- NOTE | 2024-04-05 09:25 | SUR.PHASEI ---
0925: Pt. AAOx4, vitals stable, breathing unlabored, no complaint of pain or nausea, dressing to buttocks CDI, no active bleed noted, pt. tolerated sips of soda well, pt. transferred to room 358, family made aware of transfer. Report given to Molly AMANDA.
[2024-04-05] MEDS: Vancomycin Inj 1,500 MG in SODIUM CHLORIDE 0.9% 500 ML 500 ML 200 MG IV (09:45)
--- NOTE | 2024-04-05 14:25 | ESPR_ITS ---
<Statement entered by Jaleesa Peña MD - 04/05/24 15:23> I discussed with and supervised my co-resident involved in the care of this patient. I agree with the assessment and plan as documented above. Overnight, patient had fever. Labs significant for leukocytosis otherwise unremarkable, no lactic acidosis. This morning, patient taken to OR for I&D (see OR note). Afterwards, patient is doing well. Will discontinue clindamycin and continue vanc and zosyn. Jaleesa Peña MD PGY-3 Documentation for date of: 04/05/24 Subjective Subjective Interval history: Patient went to the OR this morning for incision and drainage of the ischiorectal abscess left buttock. He continued to have fevers throughout the night and spreading of his cellulitis. Exam Vital Signs Temp Pulse Resp BP Pulse Ox O2 Del Method O2 Flow Rate 99.0 F 88 18 112/72 96 Room Air 2 04/05/24 12:00 04/05/24 12:00 04/05/24 12:00 04/05/24 12:00 04/05/24 12:00 04/05/24 12:04/05/24 09:20 Narrative Exam Constitutional: Obese, no acute distress Head: Normocephalic/Atraumatic Eyes: no conjunctival injection , symmetrical lids. ENMT: Moist Mucous Membranes CVS: Regular rate and rhythm RESP: no increased work of breathing, on room air : Left buttock dressing clean dry and intact, patient is able to move around in bed comfortably. MSK: Full range of motion Skin: As per above Neuro: Alert and oriented Psych: Appropriate mood and affect. Objective Labs 04/06/24 05:26 04/06/24 05:26 Labs: Laboratory Results - last 24 hr 04/04/24 04/04/24 04/05/24 19:00 22:30 03:23 WBC 28.7 H RBC 4.63 Hgb 14.2 Hct 42.1 MCV 91 MCH 30.7 MCHC 33.7 RDW Std Deviation 43.2 Plt Count 294 Neut % (Auto) 81 H Lymph % (Auto) 8 L [place] % (Auto) 9 Eos % (Auto) 0 Baso % (Auto) 0 Neut # (Auto) 23.3 H Lymph # (Auto) 2.3 [place] # (Auto) 2.5 H Eos # (Auto) 0.0 Baso # (Auto) 0.1 Immature Gran # (Auto) 0.54 H Absolute Nucleated RBC 0.00 Immature Gran % 2 H Nucleated RBC % 0 Sodium 135 L 137 Potassium 3.8 3.5 Chloride 102 103 Carbon Dioxide 25.0 26.3 Anion Gap 8 8 BUN 12 11 Creatinine 1.1 1.0 Estim Creat Clear Calc 153.5 168.8 eGFR > 60 > 60 BUN/Creatinine Ratio 11 L 11 L Glucose 117 H 114 H Calculated Osmolality 270 L 274 L Lactic Acid 1.0 Calcium 8.5 8.4 Corrected Calcium 8.6 Total Bilirubin 0.6 AST 14 ALT 22 Alkaline Phosphatase 62 Total Protein 7.1 Albumin 3.7 D Globulin 3.4 Albumin/Globulin Ratio 1.1 L Ur Collection Type Clean Catch Urine Color Lt-Yellow Urine Clarity Clear Urine pH 6.0 Ur Specific [place] 1.009 Urine Protein Negative Urine Glucose (UA) Negative Urine Ketones Negative Urine Blood 3+ A Urine Nitrite Negative Urine Bilirubin Negative Urine Urobilinogen (Auto) Negative Ur Leukocyte Esterase Negative Urine RBC 3 Urine WBC 1 Ur Squamous Epith Cells 0 Urine Bacteria None Ur Culture Indicated? Not Indicated Quality Measures Quality Measures none Assessment & Plan Assessment Current Active Medications: Generic Name Dose Route Start Last Admin Trade Name Freq PRN Reason Stop Dose Admin Acetaminophen 650 mg 04/04/24 12:03 04/04/24 23:52 Acetaminophen 325 Mg Tablet PO 05/04/24 12:02 650 mg Q6H PRN Administration Fever >101.5 Enoxaparin Sodium 60 mg 04/04/24 21:00 04/05/24 07:59 Enoxaparin Sod Inj 60 Mg/0.6 Ml Syringe SC 04/18/24 20:59 Not Given BID [facility] Protocol Piperacillin/Tazobactam/Dextrose 3.375 gm in 50 mls @ 12.5 mls/hr 04/04/24 13:00 04/05/24 13:38 Zosyn IV 04/11/24 12:59 12.5 mls/hr Q8H SCOTT Administration Sodium Chloride 1,000 mls @ 125 mls/hr 04/04/24 16:06 04/05/24 10:10 Ns IV 05/04/24 16:05 Infused .Q8H SCOTT Infusion Vancomycin HCl 1,500 mg/ 500 mls @ 200 mls/hr 04/05/24 10:00 04/05/24 09:45 Sodium Chloride IV 04/12/24 09:59 200 mls/hr BID@1000,2200 SCOTT Administration Protocol Ibuprofen 600 mg 04/04/24 12:03 Ibuprofen Tab 600 Mg Tablet PO 05/04/24 12:02 Q6H PRN PAIN SCALE 1-3 (mild Morphine Sulfate 5 mg 04/05/24 09:40 Morphine Sulf Inj 10 Mg/Ml Vial IVP 04/10/24 09:39 Q4HR PRN PAIN SCALE 4-6 (Moderate Protocol Ondansetron HCl 4 mg 04/04/24 12:03 Ondansetron Inj 2 Mg/Ml Inj 2 Ml IV 05/04/24 12:02 Q6H PRN NAUSEA OR VOMITING Protocol Oxycodone/Acetaminophen 1 tab 04/04/24 12:03 Oxycodone/Apap 5/325 Tablet PO 04/09/24 12:02 Q6H PRN PAIN SCALE 4-6 (Moderate Pharmacy Consult 1 each 04/05/24 09:00 Vancomycin Pharmacy To Dose 1 Each Each IV 05/05/24 08:59 QDAY PRN PROTOCOL Sennosides 2 tab 04/04/24 12:03 Senna Tablet PO 05/04/24 12:02 BID PRN CONSTIPATION Protocol Plan Patient is a 34-year-old male with history of hypertension and morbid obesity, presenting with a complaint of left buttock swelling, erythema and tenderness for the last 5 days. Admitted for further treatment of cellulitis. Sepsis Cellulitis Leukocytosis In the ED vitals within normal limits. Labs with a leukocytosis of 30. Negative lactic acid 1.3. Blood cultures x 2 drawn. Negative Pro-Celestine 0.25. 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 Testicular ultrasound unremarkable. On exam: Left buttock is indurated, erythematous, warm and tender to palpation. There is a 2 x 2 cm area of focal induration on the posterior aspect of the left buttock. Erythema and induration spreads anteriorly to the perineum at the base of the scrotum. Patient is able to move around in bed comfortably, and move his scrotum without difficulty or pain. Dr. Miranda, general surgery consulted and he does not think that this is Serene's gangrene. There is no obvious signs of ischemia, no crepitus on exam, appears erythematous and indurated which is more consistent with cellulitis. 2/ Incision and drainage of the ischiorectal abscess left buttock. Patient is found to have extensive cellulitis over the left buttock with an abscess few centimeters away from the anus. Patient also was having extension of this infection over the left groin. Plan: ?Surgery consulted ?Patient on vancomycin, Zosyn (04/04?present) -s/p clindamycin (04/04?04/05) ?Blood cultures and abscess cultures pending ?Pain meds as needed, Tylenol as needed for fevers ?Will continue monitor vitals ?Consulted wound care Hypertension Patient does not know what his home medication is. ?Initiated losartan 25 mg daily Prediabetes A1c 5.5 ?Diabetic diet Obesity Patient was evaluated and managed by my attending Dr. Baumann, Luan Adame DO, PGY1 Attending Provider Attestation/Addendum Janie Carty DO, attest that I was physically present for the munoz portions of the service and evaluated the patient with the resident and I reviewed and discussed the case with the resident and agree with the resident's findings and plans of care as documented above Patient seen and evaluated this AM following I&D. Patient states he feels some relief of pressure from affected region. Case discussed with surgeon, states that patient had already draining abscess overnight, but edema appeared to have extended forward with swelling of scrotum. However, no necrotic tissue was found during surgery and patient has some mild purulence drained intraoperatively. He recommends to continue IV abx at this time and f/u with cultures. Will DC clindamycin as there is no evidence of necrotizing fasciitis. Continue with wound care.
[2024-04-05] MEDS: MORPHINE SULF INJ 10 MG/ML VIAL 5 MG IVP (20:13)
[2024-04-05] MEDS: ENOXAPARIN SOD INJ 60 MG/0.6 ML SYRINGE SC (20:15)
[2024-04-05 21:36] LABS: Vancomycin,Trough 15.9 mcg/mL (5.0-10.0)
[2024-04-06] VITALS (9 sets, daily range): BP systolic 118–155; BP diastolic 67–89; PULSE 61–78; RESP 15–98; TEMP 36.1–37.1; O2SAT 96–98; BMI 50.3
[2024-04-06] MEDS: SODIUM CHLORIDE 0.9% 1000 ML 1,000 ML 125 ML IV ×3 (03:14→17:52)
[2024-04-06] MEDS: PIPER/TAZO 3.375 GM 3.375 GM/50 ML BAG IV ×3 (04:58→20:16)
[2024-04-06 05:49] LABS: Basophils # (Auto) 0.1 Thou/mm3 (0.0-0.2); Basophils % (Auto) 0 % (0-2.5); Eosinophils % (Auto) 0 % (0-10); Hemoglobin 12.6 g/dL (13.5-16.0); Immature Granulocytes % (Auto) 2 % (0-0); Immature Granulocytes Auto 0.53 Thou/mm3 (0.00-0.00); Lymphocytes # (Auto) 1.6 Thou/mm3 (1.0-4.8); Lymphocytes % (Auto) 6 % (10-50); Mean Corpuscular HGB Conc 33.2 g/dl (31.0-37.0); Mean Corpuscular Hemoglobin 30.5 pg (25.0-35.0); Mean Corpuscular Volume 92 fL (80-100); Monocytes # (Auto) 1.6 Thou/mm3 (0.0-0.8); Monocytes % (Auto) 6 % (0-12); Neutrophils # (Auto) 24.4 Thou/mm3 (1.8-7.7); Neutrophils % (Auto) 87 % (37-80); Nucleated Red Blood Cell % 0 /100 WBC (0); Platelet Count 266 Thou/mm3 (140-440); RDW Standard Deviation 42.7 fL (35.1-43.9); Red Blood Count 4.13 Miln/mm3 (4.50-5.90); White Blood Count 28.2 Thou/mm3 (3.8-10.6)
[2024-04-06 06:30] LABS: Alanine Aminotransferase 29 U/L (10-49); Albumin, Serum 3.5 gm/dL (3.5-5.0); Albumin/Globulin Ratio 1.1 (1.2-2.2); Alkaline Phosphatase 61 U/L (46-116); Anion Gap 6 (7-16); Aspartate Amino Transferase 18 U/L (0-34); BUN/Creatinine Ratio 16 Ratio (12-20); Bilirubin,Total 0.3 mg/dL (0.3-1.2); Blood Urea Nitrogen 13 mg/dL (9-23); Calcium 8.4 mg/dL (8.3-10.6); Calcium (Corrected) 8.8 mg/dL (8.5-10.1); Carbon Dioxide 27.9 mMol/L (20.0-31.0); Chloride 105 mMol/L (98-107); Creatinine (Component) 0.8 mg/dL (0.6-1.3); Globulin 3.1 gm/dL (2.3-3.5); Glucose 144 mg/dL (74-106); Osmolality,Calculated 280 (275-295); Potassium 3.8 mMol/L (3.4-5.1); Sodium 139 mMol/L (136-145); Total Protein 6.6 gm/dL (5.7-8.2); eGFR > 60 See Note
[2024-04-06] MEDS: VANCOMYCIN/WATER 1250 MG IVPB 250 ML 120 MG IV ×2 (09:26→21:13)
[2024-04-06] MEDS: ENOXAPARIN SOD INJ 60 MG/0.6 ML SYRINGE SC ×2 (09:26→20:19)
[2024-04-06] MEDS: MORPHINE SULF INJ 10 MG/ML VIAL 5 MG IVP (14:41)
--- NOTE | 2024-04-06 15:44 | ESPR_ITS ---
<Statement entered by Jaleesa Peña MD - 04/06/24 16:31> I discussed with and supervised my co-resident involved in the care of this patient. I agree with the assessment and plan as documented above. Patient seen at bedside. No acute complaints. Afebrile. Leukocytosis improving. Will continue IV antibiotics for L buttock cellulitis. Jaleesa Peña MD PGY-3 Documentation for date of: 04/06/24 Subjective Subjective Interval history: Improvement of induration buttocks and erythema. Patient has swelling of the scrotum today. Scrotum is nontender to palpation most likely gravity dependent. Encourage patient to get up and out of bed and start walking. Will continue with current treatment. Exam Vital Signs Temp Pulse Resp BP Pulse Ox O2 Del Method O2 Flow Rate 98.1 F 68 18 155/84 H 96 Room Air 2 04/06/24 11:56 04/06/24 13:49 04/06/24 13:49 04/06/24 11:56 04/06/24 11:56 04/06/24 08:00 04/05/24 09:20 Narrative Exam Constitutional: Obese, no acute distress Head: Normocephalic/Atraumatic Eyes: no conjunctival injection , symmetrical lids. ENMT: Moist Mucous Membranes CVS: Regular rate and rhythm RESP: no increased work of breathing, on room air : Left buttock with 2 cm opening which is packed with iodine gauze after I&D, improvement of induration and erythema of the left buttock from previous. Patient does have more swelling of the scrotum, nontender and most likely gravity dependent. MSK: Full range of motion Skin: As per above Neuro: Alert and oriented Psych: Appropriate mood and affect. Objective Labs 04/07/24 05:03 04/07/24 05:03 Labs: Laboratory Results - last 24 hr 04/05/24 04/06/24 20:55 05:26 WBC 28.2 H RBC 4.13 L Hgb 12.6 L Hct 38.0 L MCV 92 MCH 30.5 MCHC 33.2 RDW Std Deviation 42.7 Plt Count 266 Neut % (Auto) 87 H Lymph % (Auto) 6 L [place] % (Auto) 6 Eos % (Auto) 0 Baso % (Auto) 0 Neut # (Auto) 24.4 H Lymph # (Auto) 1.6 [place] # (Auto) 1.6 H Eos # (Auto) 0.0 Baso # (Auto) 0.1 Immature Gran # (Auto) 0.53 H Absolute Nucleated RBC 0.00 Immature Gran % 2 H Nucleated RBC % 0 Sodium 139 Potassium 3.8 Chloride 105 Carbon Dioxide 27.9 Anion Gap 6 L BUN 13 Creatinine 0.8 Estim Creat Clear Calc 211.0 eGFR > 60 BUN/Creatinine Ratio 16 Glucose 144 H Calculated Osmolality 280 Calcium 8.4 Corrected Calcium 8.8 Total Bilirubin 0.3 AST 18 ALT 29 Alkaline Phosphatase 61 Total Protein 6.6 Albumin 3.5 Globulin 3.1 Albumin/Globulin Ratio 1.1 L Vancomycin Trough 15.9 H Quality Measures Quality Measures none Assessment & Plan Assessment Current Active Medications: Generic Name Dose Route Start Last Admin Trade Name Freq PRN Reason Stop Dose Admin Acetaminophen 650 mg 04/04/24 12:03 04/04/24 23:52 Acetaminophen 325 Mg Tablet PO 05/04/24 12:02 650 mg Q6H PRN Administration Fever >101.5 Enoxaparin Sodium 60 mg 04/04/24 21:00 04/06/24 09:26 Enoxaparin Sod Inj 60 Mg/0.6 Ml Syringe SC 04/18/24 20:59 60 mg BID SCOTT Administration Protocol Piperacillin/Tazobactam/Dextrose 3.375 gm in 50 mls @ 12.5 mls/hr 04/04/24 13:00 04/06/24 13:42 Zosyn IV 04/11/24 12:59 12.5 mls/hr Q8H SCOTT Administration Sodium Chloride 1,000 mls @ 125 mls/hr 04/04/24 16:06 04/06/24 10:08 Ns IV 05/04/24 16:05 125 mls/hr .Q8H SCOTT Administration Vancomycin HCl 250 mls @ 120 mls/hr 04/06/24 10:00 04/06/24 09:26 Vancomycin/Water 1250 Mg Ivpb IV 04/13/24 09:59 120 mls/hr BID@1000,2200 SCOTT Administration Protocol Ibuprofen 600 mg 04/04/24 12:03 Ibuprofen Tab 600 Mg Tablet PO 05/04/24 12:02 Q6H PRN PAIN SCALE 1-3 (mild Morphine Sulfate 5 mg 04/05/24 09:40 04/06/24 14:41 Morphine Sulf Inj 10 Mg/Ml Vial IVP 04/10/24 09:39 5 mg Q4HR PRN Administration PAIN SCALE 4-6 (Moderate Protocol Ondansetron HCl 4 mg 04/04/24 12:03 Ondansetron Inj 2 Mg/Ml Inj 2 Ml IV 05/04/24 12:02 Q6H PRN NAUSEA OR VOMITING Protocol Oxycodone/Acetaminophen 1 tab 04/04/24 12:03 Oxycodone/Apap 5/325 Tablet PO 04/09/24 12:02 Q6H PRN PAIN SCALE 4-6 (Moderate Pharmacy Consult 1 each 04/05/24 09:00 Vancomycin Pharmacy To Dose 1 Each Each IV 05/05/24 08:59 QDAY PRN PROTOCOL Sennosides 2 tab 04/04/24 12:03 Senna Tablet PO 05/04/24 12:02 BID PRN CONSTIPATION Protocol Plan Patient is a 34-year-old male with history of hypertension and morbid obesity, presenting with a complaint of left buttock swelling, erythema and tenderness for the last 5 days. Admitted for further treatment of cellulitis. Sepsis Cellulitis Leukocytosis In the ED vitals within normal limits. Labs with a leukocytosis of 30. Negative lactic acid 1.3. Blood cultures x 2 drawn. Negative Pro-Celestine 0.25. 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 Testicular ultrasound unremarkable. On exam: Left buttock is indurated, erythematous, warm and tender to palpation. There is a 2 x 2 cm area of focal induration on the posterior aspect of the left buttock. Erythema and induration spreads anteriorly to the perineum at the base of the scrotum. Patient is able to move around in bed comfortably, and move his scrotum without difficulty or pain. Dr. Miranda, general surgery consulted and he does not think that this is Serene's gangrene. There is no obvious signs of ischemia, no crepitus on exam, appears erythematous and indurated which is more consistent with cellulitis. 04/05 Incision and drainage of the ischiorectal abscess left buttock. Patient is found to have extensive cellulitis over the left buttock with an abscess few centimeters away from the anus. Patient also was having extension of this infection over the left groin. Plan: ?Surgery consulted ?Patient on vancomycin, Zosyn (2?present) -s/p clindamycin (04/04?04/05) ?Blood cultures and abscess cultures negative ?Pain meds as needed, Tylenol as needed for fevers ?Will continue monitor vitals ?Wound care consulted Hypertension Patient does not know what his home medication is. ?Initiated losartan 25 mg daily Prediabetes A1c 5.5 ?Diabetic diet Obesity Patient was evaluated and managed by my attending Dr. Baumann, Luan Adame DO, PGY1 Attending Provider Attestation/Addendum I, Janie Baumann DO, attest that I was physically present for the munoz portions of the service and evaluated the patient with the resident and I reviewed and discussed the case with the resident and agree with the resident's findings and plans of care as documented above Patient seen and evaluated this AM. He states he is feeling well. No further episodes of fevers. Will continue to follow cultures and IV abx. Continue with wound care, who will teach how to do packing of wound for discharge. Scrotum appears to be swollen on the left, but appears to be dependent since patient has been laying on his left side. Induration and erythema appears to have improved
[2024-04-07] VITALS (11 sets, daily range): BP systolic 131–167; BP diastolic 78–100; PULSE 45–88; RESP 15–98; TEMP 36.1–37.6; O2SAT 95–97
[2024-04-07] MEDS: SODIUM CHLORIDE 0.9% 1000 ML 1,000 ML 125 ML IV ×3 (01:55→18:37)
[2024-04-07] MEDS: PIPER/TAZO 3.375 GM 3.375 GM/50 ML BAG IV ×3 (04:54→20:25)
[2024-04-07 06:06] LABS: Basophils # (Auto) 0.1 Thou/mm3 (0.0-0.2); Basophils % (Auto) 1 % (0-2.5); Eosinophils # (Auto) 0.1 Thou/mm3 (0.0-0.5); Eosinophils % (Auto) 0 % (0-10); Hematocrit 38.1 % (41.0-53.0); Hemoglobin 12.5 g/dL (13.5-16.0); Immature Granulocytes % (Auto) 1 % (0-0); Immature Granulocytes Auto 0.31 Thou/mm3 (0.00-0.00); Lymphocytes # (Auto) 3.2 Thou/mm3 (1.0-4.8); Lymphocytes % (Auto) 14 % (10-50); Mean Corpuscular HGB Conc 32.8 g/dl (31.0-37.0); Mean Corpuscular Hemoglobin 30.6 pg (25.0-35.0); Mean Corpuscular Volume 93 fL (80-100); Monocytes # (Auto) 1.3 Thou/mm3 (0.0-0.8); Monocytes % (Auto) 6 % (0-12); Neutrophils # (Auto) 17.1 Thou/mm3 (1.8-7.7); Neutrophils % (Auto) 77 % (37-80); Nucleated Red Blood Cell % 0 /100 WBC (0); Platelet Count 312 Thou/mm3 (140-440); RDW Standard Deviation 45.1 fL (35.1-43.9); Red Blood Count 4.08 Miln/mm3 (4.50-5.90); White Blood Count 22.2 Thou/mm3 (3.8-10.6)
[2024-04-07 06:48] LABS: Alanine Aminotransferase 41 U/L (10-49); Albumin, Serum 3.2 gm/dL (3.5-5.0); Alkaline Phosphatase 68 U/L (46-116); Anion Gap 8 (7-16); Aspartate Amino Transferase 13 U/L (0-34); BUN/Creatinine Ratio 19 Ratio (12-20); Bilirubin,Total 0.3 mg/dL (0.3-1.2); Blood Urea Nitrogen 15 mg/dL (9-23); Calcium 8.3 mg/dL (8.3-10.6); Calcium (Corrected) 8.9 mg/dL (8.5-10.1); Carbon Dioxide 27.6 mMol/L (20.0-31.0); Chloride 105 mMol/L (98-107); Creatinine (Component) 0.8 mg/dL (0.6-1.3); Estimated Creatinine Clearance 208.6 mL/min (>60); Globulin 3.2 gm/dL (2.3-3.5); Glucose 93 mg/dL (74-106); Osmolality,Calculated 282 (275-295); Sodium 141 mMol/L (136-145); Total Protein 6.4 gm/dL (5.7-8.2); eGFR > 60 See Note
[2024-04-07] MEDS: VANCOMYCIN/WATER 1250 MG IVPB 250 ML 120 MG IV ×2 (09:52→22:23)
[2024-04-07] MEDS: ENOXAPARIN SOD INJ 60 MG/0.6 ML SYRINGE SC ×2 (09:57→20:25)
[2024-04-07] MEDS: LOSARTAN POTASSIUM 25 MG TABLET PO (11:09)
--- NOTE | 2024-04-07 11:33 | ESPR_ITS ---
Documentation for date of: 04/07/24 Subjective Subjective Brief History: History of present illness revealed that the patient has been in his usual health until 5 days ago when he started having pain over the left buttock. He waited couple of days and it was not getting better. Then he went to see his primary care physician who gave him an antibiotics consisting of Bactrim. But after taking those antibiotics for 2 days patient still experienced pain and t herefore came to the emergency room. Patient's other medical problem consisted of morbid obesity weighing 380 pounds and hypertension. Patient denies any major medical illness in the past. No history of diabetes Narrative: The patient is feeling better after incision and drainage of the abscess left buttock Exam Vital Signs Temp Pulse Resp BP Pulse Ox O2 Del Method O2 Flow Rate 97.2 F 72 18 149/82 H 96 Room Air 2 04/07/24 08:00 04/07/24 11:09 04/07/24 08:00 04/07/24 11:09 04/07/24 08:00 04/07/24 08:00 04/05/24 09:20 His vital signs are normal Routine Rectal Exam Comments: Examination of the left buttock reveals gradual improvement in the cellulitis. Results Results: Laboratory Laboratory Narrative: Patient's laboratory workup showed a WBC of 22,000 Assessment & Plan Assessment Additional comments: Impression: Slow but steady recovery following drainage of ischiorectal abscess Plan Plan: We shall keep the patient for IV antibiotics till his WBC come down to normal level and then will discharge him with the wound care and oral antibiotic Procedures Procedures Incision and drainage of the ischiorectal abscess left buttock
--- NOTE | 2024-04-07 13:22 | ESPR_ITS ---
Documentation for date of: 04/07/24 Subjective Subjective Interval history: Patient doing well. Denies any pain. Got out of bed and walked around the unit yesterday. He is having increased swelling of his scrotum and penis today but not having any pain. Denies fevers, chills. Cellulitis of the left buttock is improving. Patient was able to get in the shower today. Exam Vital Signs Temp Pulse Resp BP Pulse Ox O2 Del Method O2 Flow Rate 97.4 F 72 17 149/82 H 95 Room Air 2 04/07/24 12:00 04/07/24 12:00 04/07/24 12:04/07/24 12:04/07/24 12:04/07/24 12:04/05/24 09:20 Narrative Exam Constitutional: Obese, no acute distress Head: Normocephalic/Atraumatic Eyes: no conjunctival injection , symmetrical lids. ENMT: Moist Mucous Membranes CVS: Regular rate and rhythm RESP: no increased work of breathing, on room air : Left buttock with 2 cm opening which is packed with iodine gauze after I&D, continue improvement of induration and erythema of the left buttock from previous. Patient does have more swelling of the scrotum and penis as well, nontender and most likely gravity dependent. MSK: Full range of motion Skin: As per above Neuro: Alert and oriented Psych: Appropriate mood and affect. Objective Labs 04/08/24 04:46 04/08/24 04:46 Labs: Laboratory Results - last 24 hr 04/07/24 05:03 WBC 22.2 H D RBC 4.08 L Hgb 12.5 L Hct 38.1 L MCV 93 MCH 30.6 MCHC 32.8 RDW Std Deviation 45.1 H Plt Count 312 D Neut % (Auto) 77 Lymph % (Auto) 14 [place] % (Auto) 6 Eos % (Auto) 0 Baso % (Auto) 1 Neut # (Auto) 17.1 H Lymph # (Auto) 3.2 [place] # (Auto) 1.3 H Eos # (Auto) 0.1 Baso # (Auto) 0.1 Immature Gran # (Auto) 0.31 H Absolute Nucleated RBC 0.00 Immature Gran % 1 H Nucleated RBC % 0 Sodium 141 Potassium 4.0 Chloride 105 Carbon Dioxide 27.6 Anion Gap 8 BUN 15 Creatinine 0.8 Estim Creat Clear Calc 208.6 eGFR > 60 BUN/Creatinine Ratio 19 Glucose 93 D Calculated Osmolality 282 Calcium 8.3 Corrected Calcium 8.9 Total Bilirubin 0.3 AST 13 ALT 41 Alkaline Phosphatase 68 Total Protein 6.4 Albumin 3.2 L Globulin 3.2 Albumin/Globulin Ratio 1.0 L Quality Measures Quality Measures none Assessment & Plan Assessment Current Active Medications: Generic Name Dose Route Start Last Admin Trade Name Freq PRN Reason Stop Dose Admin Acetaminophen 650 mg 04/04/24 12:03 04/04/24 23:52 Acetaminophen 325 Mg Tablet PO 05/04/24 12:02 650 mg Q6H PRN Administration Fever >101.5 Enoxaparin Sodium 60 mg 04/04/24 21:00 04/07/24 09:57 Enoxaparin Sod Inj 60 Mg/0.6 Ml Syringe SC 04/18/24 20:59 60 mg BID SCOTT Administration Protocol Piperacillin/Tazobactam/Dextrose 3.375 gm in 50 mls @ 12.5 mls/hr 04/04/24 13:00 04/07/24 04:54 Zosyn IV 04/11/24 12:59 12.5 mls/hr Q8H SCOTT Administration Sodium Chloride 1,000 mls @ 125 mls/hr 04/04/24 16:06 04/07/24 09:52 Ns IV 05/04/24 16:05 125 mls/hr .Q8H SCOTT Administration Vancomycin HCl 250 mls @ 120 mls/hr 04/06/24 10:00 04/07/24 09:52 Vancomycin/Water 1250 Mg Ivpb IV 04/13/24 09:59 120 mls/hr BID@1000,2200 SCOTT Administration Protocol Ibuprofen 600 mg 04/04/24 12:03 Ibuprofen Tab 600 Mg Tablet PO 05/04/24 12:02 Q6H PRN PAIN SCALE 1-3 (mild Losartan Potassium 25 mg 04/07/24 11:00 04/07/24 11:09 Losartan Potassium 25 Mg Tablet PO 05/07/24 10:59 25 mg QDAY SCOTT Administration Morphine Sulfate 5 mg 04/05/24 09:40 04/06/24 14:41 Morphine Sulf Inj 10 Mg/Ml Vial IVP 04/10/24 09:39 5 mg Q4HR PRN Administration PAIN SCALE 4-6 (Moderate Protocol Ondamangoetron HCl 4 mg 04/04/24 12:03 Ondansetron Inj 2 Mg/Ml Inj 2 Ml IV 05/04/24 12:02 Q6H PRN NAUSEA OR VOMITING Protocol Oxycodone/Acetaminophen 1 tab 04/04/24 12:03 Oxycodone/Apap 5/325 Tablet PO 04/09/24 12:02 Q6H PRN PAIN SCALE 4-6 (Moderate Pharmacy Consult 1 each 04/05/24 09:00 Vancomycin Pharmacy To Dose 1 Each Each IV 05/05/24 08:59 QDAY PRN PROTOCOL Sennosides 2 tab 04/04/24 12:03 Senna Tablet PO 05/04/24 12:02 BID PRN CONSTIPATION Protocol Plan Patient is a 34-year-old male with history of hypertension and morbid obesity, presenting with a complaint of left buttock swelling, erythema and tenderness for the last 5 days. Admitted for further treatment of cellulitis. Sepsis Cellulitis Leukocytosis In the ED vitals within normal limits. Labs with a leukocytosis of 30. Negative lactic acid 1.3. Blood cultures x 2 drawn. Negative Pro-Celestine 0.25. 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 Testicular ultrasound unremarkable. On exam: Left buttock is indurated, erythematous, warm and tender to palpation. There is a 2 x 2 cm area of focal induration on the posterior aspect of the left buttock. Erythema and induration spreads anteriorly to the perineum at the base of the scrotum. Patient is able to move around in bed comfortably, and move his scrotum without difficulty or pain. Dr. Miranda, general surgery consulted and he does not think that this is Serene's gangrene. There is no obvious signs of ischemia, no crepitus on exam, appears erythematous and indurated which is more consistent with cellulitis. 2/ Incision and drainage of the ischiorectal abscess left buttock. Patient is found to have extensive cellulitis over the left buttock with an abscess few centimeters away from the anus. Patient also was having extension of this infection over the left groin. Plan: ?Surgery consulted ?Patient on vancomycin, Zosyn (2/?present) ?MRSA ordered if negative will DC Vanco ?Likely discharge on Tuesday -s/p clindamycin (04/04?04/05) ?Blood cultures and abscess cultures negative ?Pain meds as needed, Tylenol as needed for fevers ?Will continue monitor vitals ?Wound care consulted Hypertension Patient does not know what his home medication is. ?Initiated losartan 25 mg daily Prediabetes A1c 5.5 ?Diabetic diet Obesity Patient was evaluated and managed by my attending Dr. Baumann, Luan Adame DO, PGY1 Attending Provider Attestation/Addendum I, Janie Baumann DO, attest that I was physically present for the munoz portions of the service and evaluated the patient with the resident and I reviewed and discussed the case with the resident and agree with the resident's findings and plans of care as documented above Patient seen and evaluated this AM with nurse at bedside. Left gluteal celllulitis appears much improved. he continues to have scrotal edema, but appears about unchanged and dependent with how patient is laying on his left side. Patient otherwise samira no complaints. Will continue with vancomycin and zosyn. He remains afebrile. Pain is well controlled. Final wound cultures are negative. Will continue with broad spectrum abx and wound care.
--- NOTE | 2024-04-07 14:00 | PC.NURSE ---
pt did second dressing change
[2024-04-07 21:52] LABS: Vancomycin,Trough 4.4 mcg/mL (5.0-10.0)
[2024-04-08] VITALS (14 sets, daily range): BP systolic 145–173; BP diastolic 65–119; PULSE 36–82; RESP 15–99; TEMP 36.2–36.9; O2SAT 94–98
--- NOTE | 2024-04-08 00:14 | PC.NURSE ---
MD Castano made aware of BP 173/119, HR 72, will put order in.
[2024-04-08] MEDS: hydrALAZINE INJ 20 MG/ML VIAL 10 MG IV (00:44)
[2024-04-08] MEDS: SODIUM CHLORIDE 0.9% 1000 ML 1,000 ML 125 ML IV (02:46)
--- NOTE | 2024-04-08 04:33 | PC.NURSE ---
MD Noe made aware that pt HR nereyda down to 35 and had a 3 sec pause, pt is asleep at that moment, per MD will inform AM MD to put order for BiPAP at night time.
[2024-04-08] MEDS: PIPER/TAZO 3.375 GM 3.375 GM/50 ML BAG IV ×3 (05:02→20:25)
[2024-04-08] MEDS: LOSARTAN POTASSIUM 25 MG TABLET PO ×2 (05:51→11:33)
[2024-04-08 06:03] LABS: Basophils # (Auto) 0.1 Thou/mm3 (0.0-0.2); Basophils % (Auto) 1 % (0-2.5); Eosinophils # (Auto) 0.2 Thou/mm3 (0.0-0.5); Eosinophils % (Auto) 1 % (0-10); Hematocrit 39.7 % (41.0-53.0); Immature Granulocytes % (Auto) 3 % (0-0); Immature Granulocytes Auto 0.45 Thou/mm3 (0.00-0.00); Lymphocytes # (Auto) 3.2 Thou/mm3 (1.0-4.8); Lymphocytes % (Auto) 20 % (10-50); Mean Corpuscular HGB Conc 32.7 g/dl (31.0-37.0); Mean Corpuscular Hemoglobin 30.2 pg (25.0-35.0); Mean Corpuscular Volume 92 fL (80-100); Monocytes # (Auto) 1.1 Thou/mm3 (0.0-0.8); Monocytes % (Auto) 7 % (0-12); Neutrophils # (Auto) 10.9 Thou/mm3 (1.8-7.7); Neutrophils % (Auto) 69 % (37-80); Nucleated Red Blood Cell % 0 /100 WBC (0); Platelet Count 371 Thou/mm3 (140-440); RDW Standard Deviation 44.2 fL (35.1-43.9); Red Blood Count 4.31 Miln/mm3 (4.50-5.90); White Blood Count 15.9 Thou/mm3 (3.8-10.6)
--- NOTE | 2024-04-08 06:10 | PC.NURSE ---
MD Castano made aware of BP 153/106, MD ordered to give the AM dose of Losartan at this time.
[2024-04-08 06:28] LABS: Alanine Aminotransferase 45 U/L (10-49); Albumin, Serum 3.5 gm/dL (3.5-5.0); Albumin/Globulin Ratio 1.1 (1.2-2.2); Alkaline Phosphatase 60 U/L (46-116); Anion Gap 7 (7-16); Aspartate Amino Transferase 22 U/L (0-34); BUN/Creatinine Ratio 13 Ratio (12-20); Bilirubin,Total 0.5 mg/dL (0.3-1.2); Blood Urea Nitrogen 10 mg/dL (9-23); Calcium 8.4 mg/dL (8.3-10.6); Calcium (Corrected) 8.8 mg/dL (8.5-10.1); Carbon Dioxide 29.7 mMol/L (20.0-31.0); Chloride 103 mMol/L (98-107); Creatinine (Component) 0.8 mg/dL (0.6-1.3); Estimated Creatinine Clearance 208.6 mL/min (>60); Globulin 3.2 gm/dL (2.3-3.5); Glucose 89 mg/dL (74-106); Magnesium 1.8 mg/dL (1.6-2.6); Osmolality,Calculated 277 (275-295); Potassium 3.7 mMol/L (3.4-5.1); Sodium 140 mMol/L (136-145); Total Protein 6.7 gm/dL (5.7-8.2); eGFR > 60 See Note
[2024-04-08] MEDS: VANCOMYCIN/NS 1 GM IVPB 200 ML IV (08:38)
[2024-04-08] MEDS: ENOXAPARIN SOD INJ 60 MG/0.6 ML SYRINGE SC ×2 (08:39→20:26)
--- NOTE | 2024-04-08 10:21 | PD.RESPRO ---
Documentation for date of: 04/08/24 Subjective Subjective Interval history: Patient was seen at bedside this morning. No overnight events. Patient has been having bowel movements without pain in the wound area. His WBC went down trended to 15.9 today and is blood cultures have been negative as well as his wound culture. General surgeon wanted the patient stay another night as he wants the WBC to downtrend. Switch vancomycin to doxycycline p.o. today and increase losartan to 50 mg daily. No other complaints at this time. Exam Vital Signs Temp Pulse Resp BP Pulse Ox O2 Del Method O2 Flow Rate 98.4 F 69 15 154/65 H 94 L Room Air 2 04/08/24 08:00 04/08/24 08:00 04/08/24 08:00 04/08/24 08:00 04/08/24 08:00 04/08/24 08:00 04/08/24 04:00 Narrative Exam General: A/O x3, no acute distress, well-nourished, well-developed Eyes: PERRL, EOMI. Anicteric, vision grossly intact. Ears: No ear pain, no ear discharge, Hearing grossly intact. Nose: No nasal discharge. Mouth/Throat: Moist mucous membranes, no redness, no lesions. Neck: Neck supple, non-tender, no cervical lymphadenopathy. Lungs: Clear TIMOTHY to auscultation and percussion, No accessory muscle use. Cardio: Normal S1/S2, regular rhythm, no murmurs, no JVD or carotid bruits. Abdomen: Soft, non-tender, no palpable masses, peristalsis present, no guarding or rebound. Extremities: Symmetrical, no significant deformities, no peripheral edema , non-tender, peripheral pulses presents. Skin: No rashes, no lesions, warm to touch. L butock wound covered with clean dressing. Neuro: No focal neurological deficits. Psych: Cooperative, appropriate mood and effect. Objective Labs 04/09/24 04:49 04/09/24 04:49 Labs: Laboratory Results - last 24 hr 04/07/24 04/08/24 21:22 04:46 WBC 15.9 H D RBC 4.31 L Hgb 13.0 L Hct 39.7 L MCV 92 MCH 30.2 MCHC 32.7 RDW Std Deviation 44.2 H Plt Count 371 D Neut % (Auto) 69 Lymph % (Auto) 20 [place] % (Auto) 7 Eos % (Auto) 1 Baso % (Auto) 1 Neut # (Auto) 10.9 H Lymph # (Auto) 3.2 [place] # (Auto) 1.1 H Eos # (Auto) 0.2 Baso # (Auto) 0.1 Immature Gran # (Auto) 0.45 H Absolute Nucleated RBC 0.00 Immature Gran % 3 H Nucleated RBC % 0 Sodium 140 Potassium 3.7 Chloride 103 Carbon Dioxide 29.7 Anion Gap 7 BUN 10 Creatinine 0.8 Estim Creat Clear Calc 208.6 eGFR > 60 BUN/Creatinine Ratio 13 Glucose 89 Calculated Osmolality 277 Calcium 8.4 Corrected Calcium 8.8 Magnesium 1.8 Total Bilirubin 0.5 AST 22 ALT 45 Alkaline Phosphatase 60 Total Protein 6.7 Albumin 3.5 Globulin 3.2 Albumin/Globulin Ratio 1.1 L Vancomycin Trough 4.4 L Quality Measures Quality Measures none Assessment & Plan Assessment Current Active Medications: Generic Name Dose Route Start Last Admin Trade Name Freq PRN Reason Stop Dose Admin Acetaminophen 650 mg 04/04/24 12:03 04/04/24 23:52 Acetaminophen 325 Mg Tablet PO 05/04/24 12:02 650 mg Q6H PRN Administration Fever >101.5 Doxycycline Hyclate 100 mg 04/08/24 21:00 Doxycycline 100 Mg Tablet PO 04/15/24 20:59 BID SCOTT Enoxaparin Sodium 60 mg 04/04/24 21:00 04/08/24 08:39 Enoxaparin Sod Inj 60 Mg/0.6 Ml Syringe SC 04/18/24 20:59 60 mg BID SCOTT Administration Protocol Piperacillin/Tazobactam/Dextrose 3.375 gm in 50 mls @ 12.5 mls/hr 04/04/24 13:00 04/08/24 05:02 Zosyn IV 04/11/24 12:59 12.5 mls/hr Q8H SCOTT Administration Sodium Chloride 1,000 mls @ 125 mls/hr 04/04/24 16:06 04/08/24 10:12 Ns IV 05/04/24 16:05 Not Given .Q8H SCOTT Ibuprofen 600 mg 04/04/24 12:03 Ibuprofen Tab 600 Mg Tablet PO 05/04/24 12:02 Q6H PRN PAIN SCALE 1-3 (mild Losartan Potassium 25 mg 04/07/24 11:00 04/08/24 05:51 Losartan Potassium 25 Mg Tablet PO 05/07/24 10:59 25 mg QDAY SCOTT Administration Morphine Sulfate 5 mg 04/05/24 09:40 04/06/24 14:41 Morphine Sulf Inj 10 Mg/Ml Vial IVP 04/10/24 09:39 5 mg Q4HR PRN Administration PAIN SCALE 4-6 (Moderate Protocol Ondansetron HCl 4 mg 04/04/24 12:03 Ondansetron Inj 2 Mg/Ml Inj 2 Ml IV 05/04/24 12:02 Q6H PRN NAUSEA OR VOMITING Protocol Oxycodone/Acetaminophen 1 tab 04/04/24 12:03 Oxycodone/Apap 5/325 Tablet PO 04/09/24 12:02 Q6H PRN PAIN SCALE 4-6 (Moderate Sennosides 2 tab 04/04/24 12:03 Senna Tablet PO 05/04/24 12:02 BID PRN CONSTIPATION Protocol Plan 34-year-old male with history of hypertension and morbid obesity admitted to the hospital on 04/04/2024 for cellulitis. #Cellulitis #Leukocytosis ?Patient came in with left buttock swelling, erythema, and tenderness for 5 days prior to admission. ? 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 ? Testicular ultrasound was unremarkable ? General Surgery conducted I&D on 04/15/2024 ? Wound cultures and blood cultures negative ? Discontinue vancomycin [04/04/2024 - 04/08/2024] Plan: ? Continue Zosyn [04/04/2024?] ? Started doxycycline 100 mg twice daily [04/08/2024?] ?Wound care ordered ? General Surgery consulted, appreciate recommendations ? Will continue monitor #Hypertension ?Patient blood pressure has still been in the 140s to 150s over 100s. ? Increased losartan to 50mg daily #Normocytic normochromic anemia ? Hemoglobin 13 today ? Base hemoglobin around 15 on admission ?Most likely hemodilutional versus some blood loss during surgery Plan: ? Will transfuse hemoglobin less than 7 ? Will continue to monitor #Prediabetes #Obesity ? A1c 5.5% Disposition: Patient pending downtrending WBC. Diet: carb consistent GI prophylaxis: not indicated DVT prophylaxis: lovenox Code: full Case disclosed with Attending Dr. Pastor Pineda PGY1 Attending Provider Attestation/Addendum I, Janie Baumann DO, attest that I was physically present for the munoz portions of the service and evaluated the patient with the resident and I reviewed and discussed the case with the resident and agree with the resident's findings and plans of care as documented above Patient seen and evaluated this AM. Patient states he is doing well and anxious to go home. Wound appears clean, dry and intact. Induration and erythema greatly improved. Patient has tenderness from packing, but overall much improved. Scrotal swelling also improved. at bedside for education on wound care. Case discussed with surgeon, plan for discharge within next 24hrs. Will switch vancomycin to doxycycline. Wound cultures negative.
[2024-04-08] MEDS: IBUPROFEN TAB 600 MG TABLET PO (16:24)
[2024-04-08] MEDS: DOXYCYCLINE 100 MG TABLET PO (20:28)
[2024-04-09] VITALS: BP 160/90; PULSE 68; PULSE 78; RESP 20; TEMP 36.4; O2SAT 98
[2024-04-09 04:00] VITALS: BP 162/97; PULSE 53; PULSE 79; RESP 20; TEMP 36.6; O2SAT 97
[2024-04-09] MEDS: PIPER/TAZO 3.375 GM 3.375 GM/50 ML BAG IV (05:33)
[2024-04-09 06:09] LABS: Basophils # (Auto) 0.2 Thou/mm3 (0.0-0.2); Basophils % (Auto) 1 % (0-2.5); Eosinophils # (Auto) 0.4 Thou/mm3 (0.0-0.5); Eosinophils % (Auto) 3 % (0-10); Hematocrit 41.8 % (41.0-53.0); Hemoglobin 14.3 g/dL (13.5-16.0); Immature Granulocytes % (Auto) 8 % (0-0); Immature Granulocytes Auto 1.35 Thou/mm3 (0.00-0.00); Lymphocytes # (Auto) 2.9 Thou/mm3 (1.0-4.8); Lymphocytes % (Auto) 18 % (10-50); Mean Corpuscular HGB Conc 34.2 g/dl (31.0-37.0); Mean Corpuscular Hemoglobin 31.2 pg (25.0-35.0); Mean Corpuscular Volume 91 fL (80-100); Monocytes # (Auto) 1.1 Thou/mm3 (0.0-0.8); Monocytes % (Auto) 6 % (0-12); Neutrophils # (Auto) 10.7 Thou/mm3 (1.8-7.7); Neutrophils % (Auto) 64 % (37-80); Nucleated Red Blood Cell % 0 /100 WBC (0); Platelet Count 397 Thou/mm3 (140-440); RDW Standard Deviation 42.7 fL (35.1-43.9); Red Blood Count 4.58 Miln/mm3 (4.50-5.90); White Blood Count 16.6 Thou/mm3 (3.8-10.6)
[2024-04-09 07:35] LABS: Alanine Aminotransferase 66 U/L (10-49); Albumin, Serum 3.6 gm/dL (3.5-5.0); Alkaline Phosphatase 70 U/L (46-116); Anion Gap 8 (7-16); Aspartate Amino Transferase 34 U/L (0-34); BUN/Creatinine Ratio 11 Ratio (12-20); Bilirubin,Total 0.3 mg/dL (0.3-1.2); Blood Urea Nitrogen 10 mg/dL (9-23); Calcium 8.8 mg/dL (8.3-10.6); Calcium (Corrected) 9.1 mg/dL (8.5-10.1); Carbon Dioxide 27.4 mMol/L (20.0-31.0); Chloride 104 mMol/L (98-107); Creatinine (Component) 0.9 mg/dL (0.6-1.3); Estimated Creatinine Clearance 185.4 mL/min (>60); Globulin 3.6 gm/dL (2.3-3.5); Glucose 93 mg/dL (74-106); Osmolality,Calculated 276 (275-295); Potassium 3.9 mMol/L (3.4-5.1); Sodium 139 mMol/L (136-145); Total Protein 7.2 gm/dL (5.7-8.2); Vancomycin,Trough < 3.0 mcg/mL (5.0-10.0); eGFR > 60 See Note
[2024-04-09 08:00] VITALS: BP 163/86; PULSE 76; PULSE 79; RESP 18; TEMP 36.3; O2SAT 98
[2024-04-09 08:44] VITALS: BP 163/86; PULSE 79
[2024-04-09] MEDS: LOSARTAN POTASSIUM 25 MG TABLET 50 MG PO (08:44)
[2024-04-09] MEDS: ENOXAPARIN SOD INJ 60 MG/0.6 ML SYRINGE SC (08:45)
[2024-04-09] MEDS: DOXYCYCLINE 100 MG TABLET PO (08:45)
--- NOTE | 2024-04-09 09:37 | ESDS_ITS ---
<Statement entered by Janie Baumann DO - 04/09/24 15:05> I, Janie Baumann DO, attest that I was physically present for the munoz portions of the service and evaluated the patient with the resident and I reviewed and discussed the case with the resident and agree with the resident's findings and plans of care as documented above Planned Discharge Date 04/09/24 DS: Providers Provider Date of admission: 04/04/24 12:02 Primary care physician: Brannon Gregg MD Admitting Provider: Janie Baumann DO Attending Provider on Admission: Janie Baumann DO Consults: 04/04/24 07:32 Consult to General Surgery Stat Comment: Consulting Provider: Luis Enrique Bautista 04/04/24 16:09 Referral Wound Care Routine Comment: 04/06/24 15:18 Referral Nutritional Services Routine Comment: Wounds Referral OP Wound Healing Dept Routine Comment: Left gluteal surgical incision, s/p I&D 04/04 Attending Provider on DC: Janie Baumann DO Discharging Provider: Janie Baumann DO DS: Diagnosis Problem List Completed Was Problem List Reviewed/Reconciled?: Yes Hospital Course Hospital Course Hospital course: 34-year-old male with history of hypertension and morbid obesity admitted to the hospital on 04/04/2024 for cellulitis. In the ED patient came in with complaints of buttocks pain for 1 week. Initially he was tachycardic, hypertensive, and febrile. Initial labs were relevant for leukocytosis (30.1) and otherwise unremarkable. 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 General surgery was consulted on the same day of admission and stated that the patient did not have Serene's gangrene at this time and that was cellulitis. Patient underwent incision and drainage on 04/05/2024 by general surgery and he was also placed on vancomycin and Zosyn. Throughout the rest of his hospital stay patient did not spike any fevers after the I&D, his blood cultures and wound cultures were negative, and his WBC count Downtrending. Patient's remained at patient's bedside throughout the hospital stay was instructed on how to do wound dressing changes as patient does not qualify for home health. Patient was also sent on oral antibiotics for 4 more days after being discharged. At the time of discharge patient was stable enough to be discharged home. Discharge plan: Please follow-up with primary care physician 1 week after discharge. Please follow-up with general surgeon Dr. Miranda in 1 week after discharge. Please irrigate left buttocks wound area with saline and repacked with 1 inch of iodoform gauze daily. You have been started on Augmentin 875 mg twice daily and doxycycline 100 mg twice daily, please take 1 tablet of each medication this evening and then continue as prescribed until April 13, 2024. You have been started on losartan 50 mg daily for high blood pressure, please follow-up with primary care physician to see if we need higher dosages. Please come back to the ER if symptoms persist or worsen or if you experience any fevers, increased pain, chills, or discharge from the wound. Problems: #Left gluteal cellulitis #Hypertension #Normocytic normochromic anemia #Prediabetes #Obesity Case disclosed with Attending Dr. Baumann and my senior Dr. Peña PGY3 Peter Pineda PGY1 Status at Discharge Overall status at discharge: patient is progressing back to baseline Time Spent with Patient Time attestation: Total time spent providing and/or coordinating discharge services:>35 min Exam Vital Signs Temp Pulse Resp BP Pulse Ox O2 Del Method O2 Flow Rate 97.3 F 79 18 163/86 H 98 Room Air 2 04/09/24 08:00 04/09/24 08:44 04/09/24 08:00 04/09/24 08:44 04/09/24 08:00 04/09/24 08:00 04/09/24 04:00 Narrative Exam General: A/O x3, no acute distress, well-nourished, well-developed Eyes: PERRL, EOMI. Anicteric, vision grossly intact. Ears: No ear pain, no ear discharge, Hearing grossly intact. Nose: No nasal discharge. Mouth/Throat: Moist mucous membranes, no redness, no lesions. Neck: Neck supple, non-tender, no cervical lymphadenopathy. Lungs: Clear TIMOTHY to auscultation and percussion, No accessory muscle use. Cardio: Normal S1/S2, regular rhythm, no murmurs, no JVD or carotid bruits. Abdomen: Soft, non-tender, no palpable masses, peristalsis present, no guarding or rebound. Extremities: Symmetrical, no significant deformities, no peripheral edema , non-tender, peripheral pulses presents. Skin: No rashes, no lesions, warm to touch. L buttock wound covered with clean dressing and nontender. Neuro: No focal neurological deficits. Psych: Cooperative, appropriate mood and effect. Discharge Plan Plan Patient Disposition: Home w/HOME HEALTH Patient condition on transfer: Stable Care Plan Goals: Please follow-up with primary care physician 1 week after discharge. Please follow-up with general surgeon Dr. Miranda in 1 week after discharge. Please irrigate left buttocks wound area with saline and repacked with 1 inch of iodoform gauze daily. You have been started on Augmentin 875 mg twice daily and doxycycline 100 mg twice daily, please take 1 tablet of each medication this evening and then continue as prescribed until April 13, 2024. You have been started on losartan 50 mg daily for high blood pressure, please follow-up with primary care physician to see if we need higher dosages. Please come back to the ER if symptoms persist or worsen or if you experience any fevers, increased pain, chills, or discharge from the wound. Prescriptions/Referrals Prescriptions/Med Rec: New doxycycline hyclate 100 mg tablet 100 mg PO BID 4 Days Qty: 9 0RF amoxicillin-pot clavulanate 875-125 mg tablet 1 tab PO BID 4 Days Qty: 9 0RF losartan 50 mg tablet 50 mg PO QDAY Qty: 30 0RF Referrals: Brannon Gregg MD [Primary Care Provider] - Patient/Caregiver Discharge Instructions Other Discharge Activity Instructions:: Please follow-up with primary care physician 1 week after discharge. Please follow-up with general surgeon Dr. Miranda in 1 week after discharge. Please irrigate left buttocks wound area with saline and repacked with 1 inch of iodoform gauze daily. You have been started on Augmentin 875 mg twice daily and doxycycline 100 mg twice daily, please take 1 tablet of each medication this evening and then continue as prescribed until April 13, 2024. You have been started on losartan 50 mg daily for high blood pressure, please follow-up with primary care physician to see if we need higher dosages. Please come back to the ER if symptoms persist or worsen or if you experience any fevers, increased pain, chills, or discharge from the wound. 1) Follow up at [facility], [address] [place] [address]. Call [phone] for appointment. May shower than change dressing. Shower with over the counter Hibicleanse or antibacterial soap. Monitor for ingrown hairs or pimple like sites. Take pain medicine 30-45minutes prior to dressing change. -Wash hands with soap and water. Remove old dressing including strip packing. -Irrigate wound with normal saline or wound cleanser spray until clean and pat dry. -Wash hands again. -Pack wound with 1inch strip packing starting from top of wound going deep until resistance felt. Continue clockwise until entire wound cavity is full. Leave approx 2cm outside of wound for easier removal. Cover with dry gauze and secure with tape. Change once a day and as needed for soiling with urine or feces or saturated with wound drainage. If active bleeding occurs, apply tight dressing and return to MD or ER. ?Notify primary doctor or return to Emergency Room if any of the following: ?Fever above 100.6? F. ?Increased pain ?Increase swelling ?Red streaks around your wound ?Drainage becomes foul smelling or changes color ?The wound is larger or deeper ?The wound looks dried out or dark ?Bleeding that does not stop with holding pressure *Espanol* Realice masood edison de seguimiento con wagner m?dico de atenci?n primaria 1 semana despu?s del altagracia. Realice masood edison de seguimiento con el brandie Miranda 1 semana despu?s del altagracia. Irrigue el ?beverly de la herida de las nalgas izquierdas con soluci?n salina y vuelva a llenarla con 1 pulgada de gasa con yodoformo diariamente. [place] comenzado a maria m Augmentin 875 mg dos veces al d?a y doxiciclina 100 mg dos veces al d?a; tome 1 tableta de cada medicamento esta noche y luego contin?e seg?n lo prescrito hasta el 2024. [place] comenzado a maria m 50 mg de losart?n al d?a para la presi?n arterial altagracia; mitchell un seguimiento con wagner m?dico de atenci?n primaria para cheryl si necesitamos dosis m?s altas. Regrese a la jeremie de emergencias si los s?ntomas persisten o empeoran o si experimenta fiebre, aumento del dolor, escalofr?os o secreci?n de la herida. Programe masood edison de Seguimiento en [facility], [address] [place] [address]. Llame al [phone] para programar masood edison. Puede ducharse y luego cambiarse de vendaje. D?chese con Hibicleanse o jab?n antibacteriano de venta geronimo. Est? atento a los pelos encarnados o sitios similares a granos. Reyno analg?sicos entre 30 y 45 minutos antes de cambiar el vendaje. -Lavarse las antonio con agua y jab?n. Retire el ap?sito keira, incluidas las tiras de embalaje. -Irrigar la herida con soluci?n salina normal o spray limpiador para heridas hasta que est? limpia y seca. -Lavarse las antonio nuevamente. - Empaque la herida con masood noam de 1 pulgada comenzando desde la parte superior de la herida y profundiz?ndola hasta que sienta resistencia. Contin?e en el sentido de las agujas del reloj hasta que toda la cavidad de la herida est? llena. Deje aproximadamente 2 cm fuera de la herida para facilitar wagner extracci?n. Cubrir con masood gasa seca y asegurar con cinta adhesiva. Cambie masood vez al d?a y seg?n sea necesario si se ensucia con orina o heces o si est? saturado con drenaje de heridas. Si se produce sangrado activo, aplique un vendaje apretado y regrese al m?dico o a la jeremie de emergencias. ?Notifique al m?dico de atenci?n primaria o regrese a la jeremie de emergencias si presenta cualquiera de los siguientes s?ntomas: ?Fiebre superior a 100,6? F. ? Aumento del dolor ?Aumentar la hinchaz?n ? Talib larson alrededor de la herida ?El drenaje huele mal o cambia de color. ?La herida es m?s kylie o m?s profunda. ?La herida parece seca u oscura. ?Sangrado que no se detiene al mantener la presi?n. Education Materials: Nutrition for Wound Healing, Discharge Instructions for Cellulitis, Changing Dressing Dc, Wound Care Dc, Preventing Surgical Site Infections Print Language: Italian Stand Alone Forms: Marybel Award Info., Patient Portal Info Letter Discharge Order Discharge Orders: Discharge (Routine); Ordered 04/09/24 Ordered By: Peter Pineda Quality Discharge Quality Measures VTE prophylaxis
--- NOTE | 2024-04-09 10:51 | PC.SS ---
SS follow up note; SS was informed by Dr Baumann that patient will be needing outpatient Woundcare services. SS faxed out wound care referral, SS contacted the wound care clinic to confirm they received referral and spoke to Patito. She informed SS thely would contact patient to schedule an appointment.
[2024-04-09 12:00] VITALS: BP 162/88; PULSE 74; RESP 19; TEMP 36.2; O2SAT 98
== END 2024-04-09 12:47 | disposition home health service (06) | DRG 254 ==
LOC: SERX 09:40 → SERHOLD 12:55 → S3NX 04-05 06:23 → SERHOLD 04-05 06:47
PROVIDERS: Student in an Organized Health Care Education/Training Program; Surgery; Admitting Provider Internal Medicine; Emergency Provider Emergency Medicine; PCP Family Medicine; Visit Provider Internal Medicine
PROC: 0J990ZX Drainage of Buttock Subcutaneous Tissue and Fascia, Open Approach, Diagnostic (ICD-10-PCS; principal; 2024-04-05 07:30)
DX: K61.39 Other ischiorectal abscess (principal); L03.317 Cellulitis of buttock; L02.31 Cutaneous abscess of buttock; I10 Essential (primary) hypertension; E66.01 Morbid (severe) obesity due to excess calories; Z68.43 Body mass index [BMI] 50.0-59.9, adult; N50.89 Other specified disorders of the male genital organs; R11.10 Vomiting, unspecified; R19.7 Diarrhea, unspecified; R73.03 Prediabetes; F17.200 Nicotine dependence, unspecified, uncomplicated; D64.9 Anemia, unspecified; R00.0 Tachycardia, unspecified
CPT/HCPCS: 36415; 74177; 76870; 80048; 80053; 80202; 81001; 83036; 83605; 83735; 84145; 85025; 87040; 87070; 87075; 87081; 87205; 93225; 96360; A4217; A4649; J0330; J0360; J1100; J1650; J2270; J2371; J2543; J2704; J2765; J3010; J3370; J3371; J3372; J7030; J7040; J7050; Q9967; S0077; A9270; J0736

== ENCOUNTER → 2024-04-12 | Outpatient (CLI) | payer MEDICAID, SELFPAY | END | disposition home or self-care (01) | LOC: SWHD 12:36 | PROVIDERS: PCP Family Medicine; Referring Provider Family Medicine; Visit Provider Student in an Organized Health Care Education/Training Program | DX: L02.31 Cutaneous abscess of buttock (principal); I10 Essential (primary) hypertension; Z87.891 Personal history of nicotine dependence; E66.9 Obesity, unspecified | CPT/HCPCS: 11042; 99213; A9270; G0463 ==

== ENCOUNTER → 2024-04-19 | Outpatient (CLI) | payer MEDICAID, SELFPAY | END | disposition home or self-care (01) | PROVIDERS: PCP Family Medicine; Referring Provider Family Medicine; Visit Provider Student in an Organized Health Care Education/Training Program | DX: L02.31 Cutaneous abscess of buttock (principal); I10 Essential (primary) hypertension; Z87.891 Personal history of nicotine dependence; E66.9 Obesity, unspecified | CPT/HCPCS: 11042; A9270 ==

== ENCOUNTER → 2024-04-30 | Outpatient (CLI) | payer MEDICAID, SELFPAY | END | disposition home or self-care (01) | LOC: SWHD 14:21 | PROVIDERS: PCP Family Medicine; Referring Provider Family Medicine; Visit Provider Student in an Organized Health Care Education/Training Program | DX: L02.31 Cutaneous abscess of buttock (principal); I10 Essential (primary) hypertension; E66.9 Obesity, unspecified; Z87.891 Personal history of nicotine dependence | CPT/HCPCS: 99213; A9270; G0463 ==

== ENCOUNTER → 2024-05-10 | Outpatient (CLI) | payer MEDICAID, SELFPAY | END | disposition home or self-care (01) | LOC: SWHD 14:47 | PROVIDERS: PCP Family Medicine; Referring Provider Family Medicine; Visit Provider Student in an Organized Health Care Education/Training Program | DX: L02.31 Cutaneous abscess of buttock (principal); I10 Essential (primary) hypertension; Z87.891 Personal history of nicotine dependence; E66.9 Obesity, unspecified | CPT/HCPCS: 97597 ==

== ENCOUNTER → 2024-05-17 | Outpatient (CLI) | payer MEDICAID, SELFPAY | END | disposition home or self-care (01) | LOC: SWHD 15:03 | PROVIDERS: PCP Family Medicine; Referring Provider Family Medicine; Visit Provider Student in an Organized Health Care Education/Training Program | DX: L02.31 Cutaneous abscess of buttock (principal); I10 Essential (primary) hypertension; E66.9 Obesity, unspecified; Z87.891 Personal history of nicotine dependence | CPT/HCPCS: 99213; A9270; G0463 ==

== ENCOUNTER 2024-10-16 18:15 | Emergency (ER) | payer MEDICAID, SELFPAY ==
[2024-10-16 18:48] VITALS: BP 166/97; PULSE 88; RESP 20; TEMP 37; O2SAT 98; BMI 46.8
--- NOTE | 2024-10-16 19:22 | EDNOTE_ITS ---
ED Skin Abcess FB-RME/HPI General Chief complaint: General Adult/Misc Complain Stated complaint: Hemorrhoids X 1 month Time Seen by Provider: 10/16/24 19:13 Arrival date/time: 10/16/24 18:15 34M with no significant PMH presents to ED with 1 month of rectal pain. PCP gave steroid cream w/o relief. Some red blood on tissue, but no gross melena. Limitations: no limitations Related Data Previous Rx's ?Medication ?Instructions ?Recorded losartan 50 mg tablet 50 mg PO QDAY #30 tabs 04/09 ciprofloxacin HCl 500 mg tablet 500 mg PO BID 7 days # 14 tabs 10/16/24 (Cipro) lidocaine 5 % topical ointment 1 applic topical BID OK N pain #30 10/16/24 grams metronidazole 500 mg tablet 500 mg PO BID 7 days #14 t abs 10/16/24 Allergies Allergy/AdvReac Type Severity Reaction Status Date / Time No Known Allergies Allergy Verified 10/16/24 18:19 Review of Systems Review of Systems Systems Reviewed: All systems reviewed, normal except as documented Constitutional Constitutional: Reports system reviewed and no additional complaints, except as documented, Denies fever(s) and Denies headache(s) ENT Ears, Nose, Mouth, and Throat: Denies disequilibrium and Denies headache(s) Cardiovascular Cardiovascular: Reports system reviewed and no additional complaints, except as documented, Denies chest pain and Denies dyspnea Respiratory Respiratory: Reports system reviewed and no additional complaints, except as documented, Denies cough and Denies dyspnea Gastrointestinal Gastrointestinal: Reports system reviewed and no additional complaints, except as documented, Reports as per HPI, Denies abdominal pain, Reports hematochezia (some on tissue paper), Denies nausea, Denies vomiting and Reports other (rectal pain) Neurologic Neurologic: Reports system reviewed and no additional complaints, except as documented, Denies confusion, Denies disequilibrium and Denies headache(s) Psychiatric Psychiatric: Denies confusion Past Medical History Past Medical History NEUROLOGIC: Negative Neurological Disorders or Seizures CARDIAC: Positive Myocardial Infarction and Coronary Artery Disease; Negative Cardiac Disorders or Congestive Heart Failure RESPIRATORY: Negative Chronic Obstructive Pulmonary Disease (COPD) or Asthma GASTROINTESTINAL: Negative Gastrointestinal Disorders GENITOURINARY: Negative Genitourinary Disorders or Renal Disease MUSCULOSKELETAL: Negative Musculoskeletal Disorders ENDOCRINE: Negative Endocrine Disorders, Diabetes Mellitus Type 1 or Diabetes Mellitus Type 2 HEMATOLOGIC: Negative Blood Disorders or Sickle Cell Disease OTHER HISTORY: Negative Blood Transfusions or Anesthesia Reactions Family History FAMILY HISTORY: Positive Family Cardiac Disorders; Negative Family Psychiatric Problems, Family Respiratory Disorders or Family Gastrointestinal Problems Social History SMOKING STATUS: Former smoker SUBSTANCE USE: does not use ED Exam General Limitations: Present no limitations General appearance: Present alert and in no apparent distress Head Head exam: Present atraumatic Eye Eye exam: Present normal appearance, PERRL and EOMI ENT ENT exam: Present normal exam, normal oropharynx and mucous membranes moist Neck Neck exam: Present normal inspection, full ROM and trachea midline Chest Chest inspection: Present normal inspection and symmetric chest wall rise Respiratory Respiratory exam: Present normal lung sounds bilaterally Cardiovascular Cardiovascular exam: Present regular rate, normal rhythm and normal heart sounds Abdominal Exam Abdominal exam: Present soft and normal bowel sounds Rectal Exam Rectal exam: Present tenderness Extremities Exam Extremities exam: Present normal inspection and full ROM Back Exam Back exam: Present normal inspection and full ROM Neurological Exam Neurological exam: Present alert, oriented X3 and CN II-XII intact Psychiatric Psychiatric exam: Present normal affect and normal mood Skin Skin exam: Present warm, dry, intact and normal color Course Quality Measures none Orders Category Date Time Status Ciprofloxacin HCl [Ciprofloxacin] Med 10/16/24 19:14 Discontinued 500 mg PO X1 ONE metroNIDAZOLE [Flagyl] Med 10/16/24 19:14 Discontinued 500 mg PO X1 ONE Vital Signs Vital signs: Vital Signs Temperature 98.6 F 10/16/24 18:48 Pulse Rate 88 10/16/24 18:48 Respiratory Rate 20 10/16/24 18:48 Blood Pressure 166/97 H 10/16/24 18:48 Pulse Oximetry (%) 98 10/16/24 18:48 Oxygen Delivery Method Room Air 10/16/24 18:48 O2 at 98% on RA and WNLs Skin / Abscess / Foreign Body MDM Narrative MDM Narrative:: 34M with no significant PMH presents to ED with 1 month of rectal pain. PCP gave steroid cream w/o relief. Some red blood on tissue, but no gross melena. Physical exam with david Joseph RN reveals no obvious hemorrhoids internally or externally. No obvious anal fissure. Patient is very tender there. Some tender cysts around perianal area. Patient is afebrile, alert, but appears uncomfortable. Given surrounding cysts and tenderness, will treat for possible cellulitis vs small abscess. Counseled to see PCP for additional evaluation if no improvement with ABX. Patient data External records reviewed:: [facility] previous records Clinical information provided by:: patient Social determinants that could affect healthcare access:: none Patient has the following chronic illnesses:: none How is presenting disease/condition affected by chronic disease/condition?: no chronic disease Evaluation data The following diagnostics were reviewed and interpreted by me:: other (specify) (none) Lab and/or radiology exams considered but not ordered:: not ordered Interpretation Summary: n/a Medications / Prescriptions Medications or Prescriptions considered but not ordered:: ordered Medication administrations:: Medication Administration History Discontinued Medications Ciprofloxacin (Ciprofloxacin Hcl 250 Mg Tablet) 500 mg PO X1 ONE Stop: 10/16/24 19:15 Metronidazole (Metronidazole 250 Mg Tablet) 500 mg PO X1 ONE Stop: 10/16/24 19:15 above Consultations Consultation(s) initiated? (list below): No Diagnosis Skin/Abscess Differential Diagnosis: abscess of skin or subcutaneous tissue, viral exanthem, dermatophytosis, urticaria, herpes zoster, allergic reaction to drug, cellulitis, eczema, insect bites, impetigo, contact dermatitis and other (anal/rectal pain) Most likely diagnosis given after review of the tests above:: anal/rectal pain Admission Indicated Admission indicated?: not indicated Admission Request Was there a request for admission?: No Disposition Plan Disposition Plan: Discharge Discharge Attestation Discharge Attestation: The patient and all family members were given an opportunity to ask questions and understood the discharge instructions. Discharge instructions specifically effects, indications for sooner follow up or return to the emergency department, and the expected course of current diagnosis. Patient condition: Stable Discharge Plan Plan Patient Disposition: HOME (Self Care) Discharge Disposition comment: Stable Prescriptions/Referrals Prescriptions/Med Rec: New metronidazole 500 mg tablet 500 mg PO BID 7 Days Qty: 14 0RF ciprofloxacin HCl [Cipro] 500 mg tablet 500 mg PO BID 7 Days Qty: 14 0RF lidocaine 5 % ointment 1 applic topical BID PRN (Reason: pain) Qty: 30 0RF Rx Instructions: Use 10-15 min prior to wanting to have BM. No Action losartan 50 mg tablet 50 mg PO QDAY Qty: 30 0RF Problem List Clinical Impression: Anal or rectal pain Patient/Caregiver Discharge Instructions Education Materials: Understanding Anal Fissures, Taking a Sitz Bath, ED Cellulitis Additional Instructions: Please follow-up with PCP within 24-48 hours and return immediately if symptoms worsen. If problem persists after ABX, follow-up with PCP for additional evaluation for possible referral to GI and/or gen surg. Print Language: Lithuanian Stand Alone Forms: Patient Portal Info Letter PA/BOX CAR CHECKER Supervising Physician PA/BOX CAR CHECKER Supervising Physician: Dr. Mccall
[2024-10-16] MEDS: CIPROFLOXACIN HCL 250 MG TABLET 500 MG PO (19:33)
== END 2024-10-16 19:36 | disposition home or self-care (01) ==
LOC: SERX 19:35
PROVIDERS: Emergency Provider Emergency Medicine
DX: K62.89 Other specified diseases of anus and rectum (principal)
CPT/HCPCS: 99283; A9270